=== PATIENT | female | born 1940 | race Caucasian/White ===

== ENCOUNTER → 2016-05-11 | Outpatient (CLI) | payer MEDICARE, OTHER ==
--- NOTE | 2016-05-11 13:13 | WOMENS IMAGING REPORT ---
EXAM DESCRIPTION: BONE DENSITY HIP/SPINE COMPLETED DATE/TIME: 05/11/2016 10:50 am REASON FOR STUDY: M81.0 M81.0 AGE-RELATED OSTEOPOROSIS W/O CURRENT PATHOLOGICAL FRAC Z83.71 FAMILY HISTORY OF COLONIC POLYPS COMPARISON: 2003, 2013 TECHNIQUE: Dual-Energy X-ray Absorptiometry (DEXA) of the AP Spine and Hip. LIMITATIONS: None. FINDINGS: LUMBAR SPINE: The bone mineral density (BMD) measured from L1-L4 in the AP projection correlates with a T-score of -0.6, which is within normal range as defined by the World Health Organization. Please note that the AP bone density assessment includes sclerosis along the vertebral body endplates and posterior eleme nts. This likely explains the increase in bone density compared to previous studies HIP: The bone mineral density (BMD) measured in the left total hip correlates with a T-score of -0.3, whic h is normal as defined by the World Health Organization. COMMENT: The World Health Organization defines low BMD as follows: T-score: Normal: Greater than -1.0 Osteopenia: Between -1.0 and -2.5 Osteoporosis: Less than -2.5 without fractures Established osteoporosis: Less than -2.5 with fractures In general, you may wish to consider: Diagnosis Treatment Follow-up DEXA Normal BMD Prevention 2-3 years Osteopenia Prevention/Therapy 1-2 years Osteoporosis Therapy Yearly TECHNICAL DOCUMENTATION: JOB ID: [id number]- All Rights Reserved
== END ==
LOC: WI 09:57
PROVIDERS: ATTEND Internal Medicine
DX: M81.0 Age-related osteoporosis without current pathological fracture (principal); Z83.71 Family history of colonic polyps
CPT/HCPCS: 77080

== ENCOUNTER 2016-08-09 08:51 | Day surgery (SDC) | payer MEDICARE, OTHER ==
[2016-08-06 12:23] LABS: APPEARANCE,URINE CLEAR; BILIRUBIN,URINE NEGATIVE (NEGATIVE); GLUCOSE, URINE NEGATIVE (NEGATIVE); KETONES,URINE NEGATIVE (NEGATIVE); LEUKOCYTE ESTERASE,URINE TRACE (NEGATIVE); NITRITE,URINE NEGATIVE (NEGATIVE); PROTEIN,URINE NEGATIVE (NEGATIVE); URINE SPECIFIC GRAVITY 1.012; UROBILINOGEN,URINE NEGATIVE mg/dL (<2.0)
[2016-08-06 12:48] LABS: ABSOLUTE BASOPHILS # (AUTO) 0.1 10^3/uL (0.0-0.2); ABSOLUTE EOSINOPHILS # (AUTO) 0.3 10^3/uL (0.0-0.6); ABSOLUTE LYMPHOCYTES (AUTO) 1.6 10^3/uL (0.5-4.7); ABSOLUTE MONOCYTES (AUTO) 0.3 10^3/uL (0.1-1.4); ABSOLUTE NEUT (AUTO) 1.4 10^3/uL (1.7-8.2); BASOPHILS % (AUTO) 1.9 % (0-2); EOSINOPHILS % (AUTO) 8.2 % (0-6); HEMATOCRIT 35.9 % (36.0-47.0); HEMOGLOBIN 12.4 g/dL (12.0-15.5); HGB HCT DIFFERENCE 1.3; LYMPHOCYTES % (AUTO) 43.1 % (13-45); MEAN CORPUSCULAR HGB CONC 34.6 g/dL (32.0-36.0); MEAN CORPUSCULAR VOLUME 90 fl (80-97); MONOCYTES % (AUTO) 8.2 % (3-13); RED BLOOD COUNT 4.01 10^6/uL (3.72-5.28); RED CELL DISTRIBUTION WIDTH 13.8 % (11.5-14.0); SEGMENTED NEUTROPHILS % (AUTO) 38.6 % (42-78); WHITE BLOOD COUNT 3.6 10^3/uL (4.0-10.5)
[2016-08-06 13:06] LABS: ANION GAP 16 (5-19); BLOOD UREA NITROGEN 21 mg/dL (7-20); CALCIUM 9.4 mg/dL (8.4-10.2); CARBON DIOXIDE 25 mmol/L (22-30); CHLORIDE 104 mmol/L (98-107); CREATININE RESULT 0.55 mg/dL (0.52-1.25); GLUCOSE 87 mg/dL (75-110); POTASSIUM 4.3 mmol/L (3.6-5.0)
--- NOTE | 2016-08-06 21:53 | EKG REPORT ---
SEVERITY:- NORMAL ECG - SINUS RHYTHM : Confirmed by: January Joel MD 06-Aug-2016 21:51:23
[~2016-08-09 08:51] MED LIST: BUPIVACAINE HCL 0.5 % INJ/PF 30 ML SDV ONE; CEFAZOLIN 2 GM/D5W RTU 2 GM/50 ML RTUPB IV PRN; CEFAZOLIN INJ 1 GM VIAL IV PRN; LACTATED RINGERS 1000 ML IV PRN; LIDOCAINE 0.5% INJ-PF (5 MG/ML) 50 ML SDV SUBCUT PRN; LIDOCAINE 1%/EPINEPHRINE INJ 20 ML VIAL ONE
[2016-08-09] MEDS ORDERED: ONDANSETRON HCL INJ/PF 4 MG/2 ML SDV ONE ×2 (11:22→12:33)
[2016-08-09] MEDS ORDERED: FENTANYL CITRATE INJ/PF 100 MCG/2 ML AMPUL ONE ×3 (11:22→13:50)
[2016-08-09] MEDS ORDERED: PROPOFOL INJ 200 MG/20 ML VIAL IV ONE ×2 (11:22→12:33)
[2016-08-09] MEDS ORDERED: MIDAZOLAM 2 MG/2 ML INJ ONE ×2 (11:22→12:33)
[2016-08-09] MEDS ORDERED: ACETAMINOPHEN 0 ML IV ONE (11:23)
[2016-08-09] MEDS ORDERED: IBUPROFEN INJ 800 MG/8 ML VIAL IV ONE (11:23)
[2016-08-09] MEDS ORDERED: DEXAMETHASONE SOD PHOSPHATE INJ 4 MG/1 ML VIAL ONE (12:33)
[2016-08-09] MEDS ORDERED: MORPHINE SULFATE 10 MG/ML INJ ONE (12:33)
[2016-08-09] MEDS ORDERED: MEPERIDINE HCL/PF INJ 25 MG/1 ML DISP.SYRIN IV PRN (12:52)
[2016-08-09] MEDS ORDERED: FENTANYL CITRATE INJ/PF 100 MCG/2 ML AMPUL IV PRN ×3 (12:52)
[2016-08-09] MEDS ORDERED: DIPHENHYDRAMINE HCL 50 MG/ML VIAL IV PRN (12:52)
[2016-08-09] MEDS ORDERED: PROMETHAZINE HCL INJ 25 MG/1 ML VIAL IV PRN ×2 (12:52)
[2016-08-09] MEDS ORDERED: MORPHINE SULFATE 10 MG/ML INJ IV PRN (12:52)
--- NOTE | 2016-08-09 13:26 | Operative Report ---
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 Right lateral meniscal tear. Right lateral compartment chondrocalcinosis. Intact anterior cruciate ligament. Grade 2-3 chondral malacia the patellofemoral compartment. 2 cm chondral lesion of the medial femoral condyle. Medial meniscal tear OPERATION: Arthroscopic partial right lateral meniscectomy, partial right medial meniscectomy, abrasion chondroplasty, medial femoral compartment SURGEON: DONA HANKS ANESTHESIA: LMAC PROCEDURE: Supine the operating table the right lower extremity is prepped and draped in a sterile fashion. The knee is insufflated with accommodation Marcaine, Xylocaine , and epinephrine. Subsequent medial lateral infrapatellar portals are created construction are scrubbed and debridements mentation. Joint is examined Mrs. Sachin kothari. Findings as above. Using combination of basket Salas, mechanical shaver, Dr. frequency ablation probe a partial lateral meniscectomy was performed from proximal 6:00 to 12:00 on the face of the dial. Subsequently a partial medial meniscectomy was performed from approximately 12: 00 to 3:00 on the face the dial. The chondral lesion on medial femoral condyle which is about the tibial spines is debrided of all flaking chondral material. The base of it is then pockmarked using a spinal needle. At this point the joint was again examined Mrs. Sachin kothari with no new findings. His mentation is removed. The portals closures interrupted nylon. A sterile compressive dressing was applied and the patient's returned to PACU in satisfactory condition.
[2016-08-09] MEDS ORDERED: HYDROCODONE/ACETAMINOPHEN 5-325 MG TABLET PO PRN (14:32)
[2016-08-09] MEDS ORDERED: ONDANSETRON 4 MG TAB.RAPDIS PO PRN (14:32)
[2016-08-09 15:40] VITALS: BP 142/80
== END 2016-08-09 15:20 | disposition home or self-care (01) ==
LOC: OROUT 08:51
PROVIDERS: ATTEND Orthopaedic Surgery
PROC: 0SBC4ZZ Excision of Right Knee Joint, Percutaneous Endoscopic Approach (ICD-10-PCS; 2016-08-09)
PROC: 0SBC4ZZ Excision of Right Knee Joint, Percutaneous Endoscopic Approach (ICD-10-PCS; principal; 2016-08-09 11:15)
DX: M23.200 Derangement of unspecified lateral meniscus due to old tear or injury, right knee (principal); M23.203 Derangement of unspecified medial meniscus due to old tear or injury, right knee; M22.41 Chondromalacia patellae, right knee; M11.261 Other chondrocalcinosis, right knee; M19.90 Unspecified osteoarthritis, unspecified site; Z85.038 Personal history of other malignant neoplasm of large intestine; Z87.891 Personal history of nicotine dependence; Z79.899 Other long term (current) drug therapy
CPT/HCPCS: 93005; 36415; 85025; 80048; 81001; 71020; 93010; 29880; J2250; J1100; J3010; J3490; J2405; J2704; J0690; A9270; 1400; J0131; J1741; J2270

== ENCOUNTER 2016-11-01 15:59 | Emergency (ER) | payer MEDICARE, OTHER ==
[2016-11-01] MEDS ORDERED: ONDANSETRON 4 MG TAB.RAPDIS PO ONE (17:07)
--- NOTE | 2016-11-01 17:07 | ER Document Report ---
ED Medical Screen (RME) - General Chief Complaint: Nausea/Vomiting Stated Complaint: NAUSEA Time Seen by Provider: 11/01/16 17:02 Notes: patient is a 76 year old female who presents with emesis with sudden onset this am which calmed down this afternoon. she had relief for a bout 3 hours. now presents with nausea, vomiting, and abdominal discomfort. she states she has had about 15 episodes. states it is orange in color/clear. no blood, hematochezaia PMH: barretts esophagitis, colon ca, migraines, epigastric tenderness, normal bowel sounds TRAVEL OUTSIDE OF THE [place] IN LAST 30 DAYS: No - Related Data Allergies/Adverse Reactions: nitrofurantoin [From Macrobid] Allergy (Intermediate, Verified 11/01/16 16:06) Nausea nitrofurantoin macrocrystalline [From Macrobid] Allergy (Intermediate, Verified 11/01/16 16:06) Nausea Past Medical History - Past Medical History Cardiac Medical History: Denies: Hx Coronary Artery Disease, Hx Heart Attack, Hx Hypertension Pulmonary Medical History: Denies: Hx Asthma, Hx Bronchitis, Hx COPD, Hx Pneumonia Neurological Medical History: Denies: Hx Cerebrovascular Accident, Hx Seizures Renal/ Medical History: Denies: Hx Peritoneal Dialysis GI Medical History: Denies: Hx Hepatitis, Hx Hiatal Hernia, Hx Ulcer Musculoskeltal Medical History: Reports Hx Arthritis Infectious Medical History: Denies: Hx Hepatitis Past Surgical History: Reports: Hx Hysterectomy. Denies: Hx Mastectomy, Hx Open Heart Surgery, Hx Pacemaker - Immunizations Hx Diphtheria, Pertussis, Tetanus Vaccination: Yes Physical Exam - Vital signs Vitals: Temp Pulse Resp BP Pulse Ox 98.0 F 108 H 24 H 135/73 H 97 11/01/16 16:06 11/01/16 16:06 11/01/16 16:06 11/01/16 16:06 11/01/16 16:06 Course - Vital Signs Vital signs: Temp Pulse Resp BP Pulse Ox 98.0 F 108 H 24 H 135/73 H 97 11/01/16 16:06 11/01/16 16:06 11/01/16 16:06 11/01/16 16:06 11/01/16 16:06
--- NOTE | 2016-11-01 18:37 | ER Document Report ---
ED GI/ - General Mode of Arrival: Ambulatory Information source: Patient TRAVEL OUTSIDE OF THE [place] IN LAST 30 DAYS: No - HPI Patient complains to provider of: Abdominal pain, Vomiting Onset: Other - Refer to HPI notes <LOTUS BENSON - Last Filed: 11/02/16 03:57> <MAK MORALES - Last Filed: 11/02/16 04:23> - General Chief Complaint: Nausea/Vomiting Stated Complaint: NAUSEA Time Seen by Provider: 11/01/16 17:02 Notes: Patient is a 76 year old female presenting to the emergency department for nausea and vomiting. Patient states these symptoms were onset at 4:00 or 5:00 this morning. Patient states she feels like she has to have a bowel movement and is unable to. Patient had vomiting all day until around 14:00 when she was able to eat about 2 bites of chicken noodle soup. Patient then had vomiting the rest of the evening. Patient states she last vomited in the waiting room. Patient was given zofran which helped her vomiting because she is now just dry heaving. Patient denies any diarrhea. Patient complains of some epigastric pain. Patient takes because she recently lost her . Patient had bowel obstruction for pressure. Patient also has hypercholesterolemia, depression, hysterectomy, colon cancer that has been in remission for 8 years has a history of UTIs. Patient's primary care physician is Dr. Thomson. (LOTUS BENSON) - Related Data Allergies/Adverse Reactions: nitrofurantoin [From Macrobid] Allergy (Intermediate, Verified 11/01/16 16:06) Nausea nitrofurantoin macrocrystalline [From Macrobid] Allergy (Intermediate, Verified 11/01/16 16:06) Nausea Past Medical History - General Information source: Patient - Social History Smoking Status: Never Smoker Cigarette use (# per day): No Chew tobacco use (# tins/day): No Smoking Education Provided: No Frequency of alcohol use: None Drug Abuse: None Family History: None Patient has suicidal ideation: No Patient has homicidal ideation: No Musculoskeltal Medical History: Reports Hx Arthritis Past Surgical History: Reports: Hx Hysterectomy - Immunizations Hx Diphtheria, Pertussis, Tetanus Vaccination: Yes Hx Pneumococcal Vaccination: 04/18/12 <LOTUS BENSON - Last Filed: 11/02/16 03:57> Review of Systems - Review of Systems Constitutional: No symptoms reported EENT: No symptoms reported Cardiovascular: No symptoms reported Respiratory: No symptoms reported Gastrointestinal: See HPI, Abdominal pain, Nausea, Vomiting Genitourinary: No symptoms reported Female Genitourinary: No symptoms reported Musculoskeletal: No symptoms reported Skin: No symptoms reported Hematologic/Lymphatic: No symptoms reported Neurological/Psychological: No symptoms reported -: Yes All other systems reviewed and negative <LOTUS BENSON - Last Filed: 11/02/16 03:57> Physical Exam <LOTUS BENSON - Last Filed: 11/02/16 03:57> <MAK MORALES - Last Filed: 11/02/16 04:23> - Vital signs Vitals: Temp Pulse Resp BP Pulse Ox 98.0 F 108 H 24 H 135/73 H 97 11/01/16 16:06 11/01/16 16:06 11/01/16 16:06 11/01/16 16:06 11/01/16 16:06 - Notes Notes: GENERAL: Alert, interacts well. No acute distress. HEAD: Normocephalic, atraumatic. EYES: Appear normal. Pupils equal, round, and reactive to light. ENT: Moist mucus membranes, tongue midline. NECK: Full range of motion. Supple. Trachea midline. LUNGS: Clear to auscultation bilaterally, no wheezes, rales, or rhonchi. No respiratory distress. HEART: Regular rate and rhythm. No murmurs, gallops, or rubs. ABDOMEN: Soft, non-tender. Non-distended. Slightly decreased bowel sounds. EXTREMITIES: Moves all 4 extremities spontaneously. Normal strength. No edema. NEUROLOGICAL: Alert and oriented x3. Normal speech. No focal neurological deficits. GSC 15. PSYCH: Normal affect, normal mood. SKIN: Warm, dry, normal turgor. No rashes or lesions noted. (LOTUS BENSON) Course - Laboratory Result Diagrams: 11/01/16 18:30 11/01/16 18:30 <LOTUS BENSON - Last Filed: 11/02/16 03:57> - Laboratory Result Diagrams: 11/01/16 18:30 11/01/16 18:30 <MAK MORALES - Last Filed: 11/02/16 04:23> - Vital Signs Vital signs: Temp Pulse Resp BP Pulse Ox 97.5 F 90 16 131/78 H 98 11/01/16 21:53 11/01/16 21:53 11/01/16 21:53 11/01/16 21:53 11/01/16 21:53 - Laboratory Laboratory results interpreted by me: 11/01/16 11/01/16 11/01/16 18:30 18:30 19:20 Seg Neutrophils % 80.8 H Lymphocytes % 11.8 L BUN 29 H Glucose 111 H Urine Protein 30 H Urine Ketones 20 H Ur Leukocyte Esterase SMALL H Urine Ascorbic Acid 20 H Discharge <LOTUS BENSON - Last Filed: 11/02/16 03:57> <ANDREWMAK - Last Filed: 11/02/16 04:23> - Discharge Clinical Impression: Acute UTI, Nausea and vomiting Condition: Stable Disposition: HOME, SELF-CARE Additional Instructions: Urinary Tract Infection Your evaluation indicates that you have a urinary tract infection. This is due to germs growing in the bladder. This is a common problem. This infection usually responds quickly to antibiotics. Your antibiotic should be taken exactly as prescribed. Drink plenty of fluids -- three to four quarts a day. Occasionally, a bladder anesthetic will be prescribed to help stop the feeling of urgency until the antibiotic has a chance to clear the infection. This may cause your urine to be dark orange. Certain urine infections require a culture. If the doctor obtained a culture, the results will be back in two days. You should call to see if a change in treatment is needed. A repeat urinalysis after you finish treatment is often recommended. The physician will let you know if further testing is required. Call the doctor if you develop fever, chills, flank pain, inability to urinate, or blood in the urine. Vomiting Vomiting can be part of many illnesses. Most cases of vomiting are due to gastroenteritis, usually a viral infection in the intestinal tract. There is no specific treatment. The disease will end by itself. For now, the main danger to your child is dehydration. During the first few hours of the illness, give clear liquids, such as Pedialyte. Try to give small quantities frequently, such as a teaspoon of liquid every minute or about an ounce of fluids every five to ten minutes. Medications may be prescribed by the physician for special cases. After an hour or two of fluids without vomiting, add rice cereal, toast, applesauce, or bananas and other more solid foods to the clear liquids. Call the physician or go to the hospital if vomiting increases or blood appears in the bowel movement or vomitus; if your child fails to improve, or if signs of dehydration occur (no wet diapers for eight to twelve hours, tongue and mouth become dry, not acting as alert as usual). Prescriptions: Cephalexin Monohydrate [Keflex 500 mg Capsule] 500 mg PO QID #20 capsule Referrals: VICTORINO THOMSON MD [Primary Care Provider] - (Call for an appointment to be seen in follow-up in 2-3 days return for increasing worsening or new symptoms) Scribe Attestation: 11/01/16 21:04 I personally performed the services described in the documentation reviewed the documentation recorded by my scribe in my presence and it accurately and completely records my words and actions (MAK MORALES) Scribe Documentation - Scribe Written by Hailey:: Hailey Meade 11/02/16 4:02 acting as scribe for :: Andrew <LOTUS BENSON - Last Filed: 11/02/16 03:57>
[2016-11-01 18:50] LABS: ABSOLUTE EOSINOPHILS # (AUTO) 0.1 10^3/uL (0.0-0.6); ABSOLUTE MONOCYTES (AUTO) 0.5 10^3/uL (0.1-1.4); ABSOLUTE NEUT (AUTO) 6.7 10^3/uL (1.7-8.2); BASOPHILS % (AUTO) 0.6 % (0-2); EOSINOPHILS % (AUTO) 0.9 % (0-6); HEMOGLOBIN 13.2 g/dL (12.0-15.5); HGB HCT DIFFERENCE -0.4; LYMPHOCYTES % (AUTO) 11.8 % (13-45); MEAN CORPUSCULAR HEMOGLOBIN 30.1 pg (27.0-33.4); MEAN CORPUSCULAR VOLUME 91 fl (80-97); MONOCYTES % (AUTO) 5.9 % (3-13); RED BLOOD COUNT 4.39 10^6/uL (3.72-5.28); RED CELL DISTRIBUTION WIDTH 13.3 % (11.5-14.0); SEGMENTED NEUTROPHILS % (AUTO) 80.8 % (42-78); WHITE BLOOD COUNT 8.3 10^3/uL (4.0-10.5)
[2016-11-01] MEDS ORDERED: NORMAL SALINE 500 ML IV ONE (19:02)
[2016-11-01 19:09] LABS: ALANINE AMINOTRANSFERASE 30 U/L (9-52); ALBUMIN 4.8 g/dL (3.5-5.0); ALKALINE PHOSPHATASE 76 U/L (38-126); ANION GAP 13 (5-19); ASPARTATE AMINO TRANSFERASE 26 U/L (14-36); BILIRUBIN,DIRECT 0.3 mg/dL (0.0-0.4); BLOOD UREA NITROGEN 29 mg/dL (7-20); CALCIUM 9.9 mg/dL (8.4-10.2); CARBON DIOXIDE 27 mmol/L (22-30); CHLORIDE 103 mmol/L (98-107); CREATININE RESULT 0.61 mg/dL (0.52-1.25); GLUCOSE 111 mg/dL (75-110); LIPASE 38.8 U/L (23-300); POTASSIUM 4.1 mmol/L (3.6-5.0); SODIUM 143.4 mmol/L (137-145); TOTAL PROTEIN 7.9 g/dL (6.3-8.2)
[2016-11-01 19:38] LABS: APPEARANCE,URINE SLIGHTLY-CLOUDY; BILIRUBIN,URINE NEGATIVE (NEGATIVE); GLUCOSE, URINE NEGATIVE (NEGATIVE); KETONES,URINE 20 mg/dL (NEGATIVE); LEUKOCYTE ESTERASE,URINE SMALL (NEGATIVE); NITRITE,URINE NEGATIVE (NEGATIVE); PROTEIN,URINE 30 mg/dL (NEGATIVE); URINE SPECIFIC GRAVITY 1.016; UROBILINOGEN,URINE NEGATIVE mg/dL (<2.0)
--- NOTE | 2016-11-01 20:33 | RADIOLOGY REPORT (SQ) ---
EXAM DESCRIPTION: ACUTE ABDOMEN SERIES COMPLETED DATE/TIME: 11/01/2016 7:58 pm REASON FOR STUDY: vomiting history bowel obstruction COMPARISON: 08/06/2016 NUMBER OF VIEWS: Three views. TECHNIQUE: Frontal chest, supine abdomen and upright/decubitus abdomen radiographic images acquired. LIMITATIONS: None. FINDINGS: CHEST: Stable chest. Chronic changes at the right base. FREE AIR: None. No abnormal gas collections. BOWEL GAS PATTERN: Constipation. No obstructive changes. CALCIFICATIONS: No suspicious calcifications. HARDWARE: None in the abdomen. SOFT TISSUES: No gross mass or suggestion of organomegaly. BONES: Diffuse degenerative changes. OTHER: No other significant finding. IMPRESSION: Constipation. No evidence for obstruction. TECHNICAL DOCUMENTATION: JOB ID: [id number] [employer]- All Rights Reserved
[2016-11-01] MEDS ORDERED: CEPHALEXIN 500 MG CAPSULE PO ONE (21:01)
[2016-11-01] MEDS ORDERED: ONDANSETRON ODT 4 MG TAB (6 TAB/DSPK) PO PRN (21:04)
[2016-11-01 21:55] VITALS: BP 131/78
== END 2016-11-01 21:53 | disposition home or self-care (01) ==
LOC: ER 15:59
DX: N39.0 Urinary tract infection, site not specified (principal); R11.2 Nausea with vomiting, unspecified; R10.9 Unspecified abdominal pain; E78.00 Pure hypercholesterolemia, unspecified; Z90.710 Acquired absence of both cervix and uterus; Z85.038 Personal history of other malignant neoplasm of large intestine; Z87.440 Personal history of urinary (tract) infections
CPT/HCPCS: 99283; 96360; 36415; 87086; 83690; 85025; 80053; 81001; 84484; 74022; A9270 ×3; J7040; S0119

== ENCOUNTER 2016-11-16 11:34 | Day surgery (SDC) | payer MEDICARE, OTHER ==
[2016-11-16] MEDS ORDERED: NALOXONE HCL INJ/PF 0.4 MG/1 ML SDV ONE (11:52)
[2016-11-16] MEDS ORDERED: ONDANSETRON HCL INJ/PF 4 MG/2 ML SDV ONE (11:52)
[2016-11-16] MEDS ORDERED: DIPHENHYDRAMINE HCL 50 MG/ML VIAL ONE (11:52)
[2016-11-16] MEDS ORDERED: MIDAZOLAM 2 MG/2 ML INJ ONE (11:54)
[2016-11-16] MEDS ORDERED: FLUMAZENIL INJ 0.5 MG/5 ML VIAL IV ONE (11:54)
[2016-11-16] MEDS ORDERED: FENTANYL CITRATE INJ/PF 100 MCG/2 ML AMPUL ONE (11:54)
[2016-11-16] MEDS ORDERED: EPINEPHRINE INJ 1 MG/10 ML DISP.SYRIN ONE (11:55)
[2016-11-16] MEDS ORDERED: GLUCAGON,HUMAN RECOMB 1 MG INJ ONE (11:55)
[2016-11-16] MEDS: MIDAZOLAM 2 MG/2 ML INJ ONE ×5 (12:18→12:40)
--- NOTE | 2016-11-16 12:55 | Operative Report ---
Operative Report DATE OF SURGERY: 11/16/16 Operative Report: The risks, benefits and alternatives of the procedure including risks of bleeding, perforation requiring surgery are explained to the patient detail and informed consent was obtained. Patient was taken back to the endoscopy suite and placed in the left, lateral decubital position. Timeout was called. Conscious sedation medication is provided. A rectal examination was done which did not reveal any masses, tears or fissures. An Olympus video scope was inserted into the patient's rectum. It was then carefully advanced all the way to cecum. The cecum was identified by the usual anatomical landmarks of the ileocecal valve as well as the appendiceal office. Photodocumentation is obtained. Prep is good. Scope was then sequentially pulled back via the rest segments of the colon including the ascending colon, hepatic flexure, transverse colon, splenic flexure, descending colon finding to the rectosigmoid portions of the colon. Retroflexion maneuver was performed. The risks benefits and alternatives of the procedure explained to the patient in detail and informed consent is obtained.A GIF Olympus video scope was inserted into the patient's mouth and hypopharynx ,the esophagus is identified intubated and insufflated, the scope was then advanced through the esophagus stomach and duodenum, retroflexion maneuver is done, the esophagus stomach and first and second portions of the duodenum examined PREOPERATIVE DIAGNOSIS: Colorectal cancer screening, personal history of resection in the past. Gastroesophageal reflux disease with known history of Chapa's esophagus. POSTOPERATIVE DIAGNOSIS: Chapa's esophagus status post ablation. Small area of inflammation right side of the colon status post biopsy. Internal hemorrhoids OPERATION: Colonoscopy with biopsy followed by. EGD with ablation SURGEON: MARIANELA LARSON ANESTHESIA: Moderate Sedation - 6 mg of Versed, 50 mcg of fentanyl. Conscious sedation monitoring time 30 minutes. TISSUE REMOVED OR ALTERED: As noted above. COMPLICATIONS: None. ESTIMATED BLOOD LOSS: None. INTRAOPERATIVE FINDINGS: As noted above. PROCEDURE: Patient tolerated procedure well. No immediate postprocedure complications are noted. Patient discharged in good condition. Discharge date 11/16/2016. Discharge diet: Regular. Discharge activity: Regular. 2-3 week follow-up to discuss findings. 5 year surveillance colonoscopy. Six-month surveillance upper endoscopy for repeat ablation if needed. We will wait on biopsies Patient is instructed to call the office or proceed to the emergency room should there be any further problems or questions.
[2016-11-16 14:17] VITALS: BP 116/55
== END 2016-11-16 14:00 | disposition home or self-care (01) ==
LOC: END 11:34
PROVIDERS: ATTEND Internal Medicine Gastroenterology
PROC: 0DBF8ZX Excision of Right Large Intestine, Via Natural or Artificial Opening Endoscopic, Diagnostic (ICD-10-PCS; principal; 2016-11-16 12:00)
PROC: 0D558ZZ Destruction of Esophagus, Via Natural or Artificial Opening Endoscopic (ICD-10-PCS; 2016-11-16 12:00)
DX: Z12.11 Encounter for screening for malignant neoplasm of colon (principal); K52.9 Noninfective gastroenteritis and colitis, unspecified; Z85.038 Personal history of other malignant neoplasm of large intestine; Z90.49 Acquired absence of other specified parts of digestive tract; K64.8 Other hemorrhoids; K22.719 Barrett's esophagus with dysplasia, unspecified; K21.9 Gastro-esophageal reflux disease without esophagitis; E78.00 Pure hypercholesterolemia, unspecified; M19.90 Unspecified osteoarthritis, unspecified site; Z79.899 Other long term (current) drug therapy; Z79.891 Long term (current) use of opiate analgesic
CPT/HCPCS: 43270; 45380; 88305 ×2; J2250; J3010; J0171; J1200; J1610; J2310; J2405; J3490

== ENCOUNTER → 2017-01-18 | Outpatient (CLI) | payer MEDICARE, OTHER ==
--- NOTE | 2017-01-18 15:45 | RADIOLOGY REPORT (SQ) ---
EXAM DESCRIPTION: CHEST PA/LATERAL COMPLETED DATE/TIME: 01/18/2017 3:34 pm REASON FOR STUDY: PRE-OP COMPARISON: 08/06/2016 EXAM PARAMETERS: NUMBER OF VIEWS: two views TECHNIQUE: Digital Frontal and Lateral radiographic views of the chest acquired. RADIATION DOSE: NA LIMITATIONS: none FINDINGS: LUNGS AND PLEURA: There appears to be subsegmental atelectasis in the right base. There i s no change in the appearance of the lungs compared to the earlier study. There is no pleural effusi on. There is no acute infiltrate. There is no mass. MEDIASTINUM AND HILAR STRUCTURES: No masses or contour abnormalities. HEART AND VASCULAR STRUCTURES: Heart normal size. No evidence for failure. BONES: No acute findings. HARDWARE: None in the chest. OTHER: No other significant finding. IMPRESSION: Subsegmental atelectasis with no acute cardiopulmonary disease. TECHNICAL DOCUMENTATION: JOB ID: [id number] [employer]- All Rights Reserved
[2017-01-18 16:32] LABS: ABSOLUTE BASOPHILS # (AUTO) 0.1 10^3/uL (0.0-0.2); ABSOLUTE EOSINOPHILS # (AUTO) 0.3 10^3/uL (0.0-0.6); ABSOLUTE LYMPHOCYTES (AUTO) 1.3 10^3/uL (0.5-4.7); ABSOLUTE MONOCYTES (AUTO) 0.4 10^3/uL (0.1-1.4); ABSOLUTE NEUT (AUTO) 1.9 10^3/uL (1.7-8.2); BASOPHILS % (AUTO) 1.5 % (0-2); EOSINOPHILS % (AUTO) 7.2 % (0-6); HEMATOCRIT 35.2 % (36.0-47.0); HEMOGLOBIN 12.2 g/dL (12.0-15.5); HGB HCT DIFFERENCE 1.4; LYMPHOCYTES % (AUTO) 33.1 % (13-45); MEAN CORPUSCULAR HEMOGLOBIN 30.9 pg (27.0-33.4); MEAN CORPUSCULAR HGB CONC 34.6 g/dL (32.0-36.0); MEAN CORPUSCULAR VOLUME 89 fl (80-97); MONOCYTES % (AUTO) 9.4 % (3-13); RED BLOOD COUNT 3.95 10^6/uL (3.72-5.28); RED CELL DISTRIBUTION WIDTH 13.5 % (11.5-14.0); SEGMENTED NEUTROPHILS % (AUTO) 48.8 % (42-78)
[2017-01-18 16:47] LABS: APPEARANCE,URINE CLEAR; BILIRUBIN,URINE NEGATIVE (NEGATIVE); GLUCOSE, URINE NEGATIVE (NEGATIVE); KETONES,URINE NEGATIVE (NEGATIVE); LEUKOCYTE ESTERASE,URINE TRACE (NEGATIVE); NITRITE,URINE NEGATIVE (NEGATIVE); PROTEIN,URINE 30 mg/dL (NEGATIVE); URINE SPECIFIC GRAVITY 1.013; UROBILINOGEN,URINE NEGATIVE mg/dL (<2.0)
[2017-01-18 16:57] LABS: ANION GAP 10 (5-19); BLOOD UREA NITROGEN 30 mg/dL (7-20); CALCIUM 9.8 mg/dL (8.4-10.2); CARBON DIOXIDE 28 mmol/L (22-30); CHLORIDE 107 mmol/L (98-107); CREATININE RESULT 0.71 mg/dL (0.52-1.25); GLUCOSE 113 mg/dL (75-110); POTASSIUM 4.1 mmol/L (3.6-5.0)
--- NOTE | 2017-01-18 18:18 | EKG REPORT ---
SEVERITY:- NORMAL ECG - SINUS RHYTHM : Confirmed by: January Joel MD 18-Jan-2017 18:17:42
== END ==
LOC: OD 14:33
PROVIDERS: ATTEND Orthopaedic Surgery
DX: Z01.810 Encounter for preprocedural cardiovascular examination (principal); Z01.812 Encounter for preprocedural laboratory examination; Z01.818 Encounter for other preprocedural examination; J98.11 Atelectasis
CPT/HCPCS: 36415; 71020; 80048; 81001; 85025; 93005; 93010

== ENCOUNTER 2017-02-02 05:56 | Inpatient (IN) | payer MEDICARE, OTHER ==
[~2017-02-02 05:56] MED LIST changes: -BUPIVACAINE HCL 0.5 % INJ/PF 30 ML SDV ONE; +BUPIVACAINE INJ/PF LIPOSOME/PF 266 MG/20 ML SDV INJ PRN; -CEFAZOLIN 2 GM/D5W RTU 2 GM/50 ML RTUPB IV PRN; +IBUPROFEN 800 MG in NORMAL SALINE 250 ML IV PRN; +LANSOPRAZOLE 15 MG TAB.RAP.DR PO PRN; -LIDOCAINE 1%/EPINEPHRINE INJ 20 ML VIAL ONE; +OXYCODONE HCL SR 10 MG TABLET PO PRN; +VANCOMYCIN HCL 1,000 MG in DEXTROSE 5%-WATER 250 ML IV PRN
[2017-02-02] MEDS ORDERED: FENTANYL CITRATE INJ/PF 100 MCG/2 ML AMPUL ONE (06:48)
[2017-02-02] MEDS ORDERED: MIDAZOLAM 2 MG/2 ML INJ ONE (06:48)
[2017-02-02] MEDS ORDERED: FENTANYL CITRATE INJ/PF 250 MCG/5 ML AMPULE ONE (06:48)
[2017-02-02] MEDS ORDERED: ONDANSETRON HCL INJ/PF 4 MG/2 ML SDV ONE (06:49)
[2017-02-02] MEDS ORDERED: EPHEDRINE SULFATE INJ 50 MG/1 ML AMPULE ONE (06:49)
[2017-02-02] MEDS ORDERED: PROPOFOL INJ 200 MG/20 ML VIAL IV ONE (06:49)
[2017-02-02] MEDS ORDERED: TRANEXAMIC ACID INJ/PF 1,000 MG/10 ML SDV IV ONE ×3 (06:49→11:00)
[2017-02-02] MEDS ORDERED: THROMBIN (BOVINE) TOPICAL 20000 UNIT VIAL ONE (07:17)
[2017-02-02] MEDS ORDERED: THROMBIN (BOVINE) 5000 UNIT EPITAXIS KIT ONE (07:18)
[2017-02-02] MEDS ORDERED: BUPIVACAINE INJ/PF LIPOSOME/PF 266 MG/20 ML SDV ONE (07:18)
[2017-02-02] MEDS ORDERED: CEFTRIAXONE RTU 2 GM/D5W 50 ML IV SCH (08:00)
[2017-02-02] MEDS ORDERED: CEFTRIAXONE 2 GM/D5W RTU 2 GM/50 ML RTUPB IV ONE (08:00)
[2017-02-02] MEDS ORDERED: FENTANYL CITRATE INJ/PF 100 MCG/2 ML AMPUL IV PRN ×3 (08:38)
[2017-02-02] MEDS ORDERED: PROMETHAZINE HCL INJ 25 MG/1 ML VIAL IV PRN (08:38)
[2017-02-02] MEDS ORDERED: DIPHENHYDRAMINE HCL 50 MG/ML VIAL IV PRN ×2 (08:38→09:08)
[2017-02-02] MEDS ORDERED: ASCORBATE CALCIUM PO PRN (09:07)
[2017-02-02] MEDS ORDERED: BIOFLAVONOID PO PRN (09:07)
[2017-02-02] MEDS ORDERED: POLYETHYLENE GLYCOL 3350 POWDER 17 GM/1 PACKET PO PRN (09:07)
--- NOTE | 2017-02-02 09:07 | Operative Report ---
Operative Report DATE OF SURGERY: 02/02/17 PREOPERATIVE DIAGNOSIS: Right knee arthritis OPERATION: Right knee arthroplasty SURGEON: DONA HANKS ANESTHESIA: Spinal TISSUE REMOVED OR ALTERED: Bone to pathology ESTIMATED BLOOD LOSS: 100 PROCEDURE: Implants used: Femur: Karishma triathlon #4 CR femur Tibia: #3 tibia Tibial liner: 9 mm CS insert Patella: 29 mm oval patella Procedure with the patient supine on the operating table the right the limb is prepped and draped in a sterile fashion. The limb was elevated for exsanguination and the tourniquet inflated to 280 torr. A standard midline median parapatellar approach the knee is taken. Access is gained to the femoral canal through the intercondylar notch. Intramedullary alignment instrumentation used to resect 10 mm of distal femur in 5 of valgus. Sizing guide indicated a size 4 femur. Appropriate cutting jig is then used to fashion anterior posterior and chamfer cuts. A trial reduction femurs performed and this is judged to be adequate. Attention was next turned to the tibia. Using an extra medullary alignment system 9 millimeters was resected off the lateral tibial plateau. This is sized to a size 3 tibia. A trial reduction was now performed with a for femur and a 3 tibia using a 9 millimeters spacer. It is full extension and central patellofemoral tracking. The articular surface the patella was next resected using an oscillating saw. All trial implants were removed. Polymethylmethacrylate is mixed and used to cement the above implants in place. On adequate curing the cement excess cement was removed the tourniquet was deflated hemostasis obtained the wound is then closed in layers using interrupted Vicryl followed by mimi. A sterile compressive dressing was applied and the patient returned to recovery room in satisfactory condition.
[2017-02-02] MEDS ORDERED: MORPHINE SULFATE 10 MG/ML INJ IV PRN ×2 (09:08)
[2017-02-02] MEDS ORDERED: ONDANSETRON 4 MG TAB.RAPDIS PO PRN (09:08)
[2017-02-02] MEDS ORDERED: ZOLPIDEM TARTRATE 5 MG TABLET PO PRN (09:08)
[2017-02-02] MEDS ORDERED: MORPHINE SULFATE 10 MG/ML INJ IM PRN (09:08)
[2017-02-02] MEDS ORDERED: MAG HYDROX/AL HYDROX/SIMETH SUSP 30 ML UDCUP PO PRN (09:08)
[2017-02-02] MEDS ORDERED: RINGERS SOLUTION,LACTATED 1,000 ML IV PRN (09:08)
[2017-02-02] MEDS ORDERED: ONDANSETRON HCL INJ/PF 4 MG/2 ML SDV IV PRN (09:08)
[2017-02-02] MEDS ORDERED: ACETAMINOPHEN 325 MG TABLET PO PRN (09:08)
--- NOTE | 2017-02-02 09:52 | RADIOLOGY REPORT (SQ) ---
EXAM DESCRIPTION: KNEE RIGHT 2 VIEWS COMPLETED DATE/TIME: 02/02/2017 9:34 am REASON FOR STUDY: Post OP -Long Cassette in PACU COMPARISON: None. NUMBER OF VIEWS: Two views left knee. LIMITATIONS: None. FINDINGS: Status post knee arthroplasty with grossly appropriately articulating components. Expecte d postoperative changes including gas, fluid and overlying skin mimi. Roughly 2 cm ossific densit y along the medial knee may be artifact ; ossific fragment/loose body in the medial gutter also possi ble. Nonportable four view knee radiographs may help to further assess. OTHER: No other significant finding. IMPRESSION: 1. Intact knee replacement with expected postoperative changes. 2. Ossific fragment med iallmarcello, see above. TECHNICAL DOCUMENTATION: JOB ID: [id number]
[2017-02-02] MEDS ORDERED: (PENDING PHARMACY ID) (Omega-3/Dha/Epa/Fish Oil [Fish Oil 1,000 Mg Softgel] 1 CAP) PO SCH (10:00)
[2017-02-02] MEDS ORDERED: [UNRECOGNIZED DRUG - OTHER] PO SCH (10:00)
[2017-02-02] MEDS ORDERED: LUTEIN T PO SCH (10:00)
[2017-02-02] MEDS ORDERED: CHOLECALCIFEROL 1000 UNIT PO SCH (10:00)
[2017-02-02] MEDS ORDERED: FOLIC ACID PO SCH (10:00)
[2017-02-02] MEDS ORDERED: MULTIVITAMINS W-IRON TABLET, CHEWABLE PO SCH (10:00)
[2017-02-02] MEDS ORDERED: OXYCODONE HCL SR 10 MG TABLET PO SCH (10:00)
[2017-02-02] MEDS ORDERED: MULTIVIT MIN PO SCH (10:00)
[2017-02-02] MEDS ORDERED: (PENDING PHARMACY ID) (Cyanocobalamin (Vitamin B-12) [Vitamin B12] 2,500 MCG) PO SCH (10:00)
[2017-02-02] MEDS: MORPHINE SULFATE 10 MG/ML INJ IV PRN ×2 (12:06→15:31)
[2017-02-02] MEDS ORDERED: INFLUENZA ADLT QUAD (36MOS+) 2017-18 VAC 0.5 ML SYR IM PRN (12:36)
[2017-02-02] MEDS: IBUPROFEN 800 MG in NORMAL SALINE 250 ML IV SCH ×2 (14:14→21:42)
[2017-02-02] MEDS: OMEGA-3 ACID ETHYL ESTERS 1 GM CAPSULE PO SCH (14:14)
[2017-02-02] MEDS: CYANOCOBALAMIN (VITAMIN B-12) 1,000 MCG TABLET PO SCH (14:14)
[2017-02-02] MEDS: CHOLECALCIFEROL (D3) 1,000 UNIT TABLET PO SCH (14:14)
[2017-02-02] MEDS: OXYCODONE HCL IR 5 MG TABLET PO PRN ×2 (14:16→23:34)
[2017-02-02] MEDS: SENNOSIDES/DOCUSATE 8.6-50 MG 1 EACH TABLET PO SCH (17:53)
[2017-02-02] MEDS ORDERED: VANCOMYCIN HCL 1,000 MG in DEXTROSE 5%-WATER 250 ML IV ONE (21:00)
[2017-02-02] MEDS: RIVAROXABAN 10 MG TABLET PO SCH (21:40)
[2017-02-02] MEDS: ZOLPIDEM TARTRATE 5 MG TABLET PO SCH (21:40)
[2017-02-02] MEDS: OXYCODONE HCL SR 10 MG TABLET PO SCH (21:42)
[2017-02-02] MEDS ORDERED: (PENDING PHARMACY ID) (Zolpidem Tartrate [Ambien 10 Mg Tablet] 10 MG) PO SCH (22:00)
[2017-02-03 04:29] LABS: HEMATOCRIT 24.5 % (36.0-47.0); HEMOGLOBIN 8.7 g/dL (12.0-15.5); HGB HCT DIFFERENCE 1.6; MEAN CORPUSCULAR HEMOGLOBIN 31.4 pg (27.0-33.4); MEAN CORPUSCULAR HGB CONC 35.3 g/dL (32.0-36.0); MEAN CORPUSCULAR VOLUME 89 fl (80-97); RED BLOOD COUNT 2.76 10^6/uL (3.72-5.28); RED CELL DISTRIBUTION WIDTH 13.4 % (11.5-14.0); WHITE BLOOD COUNT 5.4 10^3/uL (4.0-10.5)
[2017-02-03 04:55] LABS: ANION GAP 10 (5-19); BLOOD UREA NITROGEN 15 mg/dL (7-20); CALCIUM 8.7 mg/dL (8.4-10.2); CARBON DIOXIDE 24 mmol/L (22-30); CHLORIDE 107 mmol/L (98-107); CREATININE RESULT 0.61 mg/dL (0.52-1.25); GLUCOSE 137 mg/dL (75-110); POTASSIUM 4.2 mmol/L (3.6-5.0); SODIUM 140.6 mmol/L (137-145)
[2017-02-03] MEDS: IBUPROFEN 800 MG in NORMAL SALINE 250 ML IV SCH ×3 (05:41→21:24)
[2017-02-03] MEDS ORDERED: LANSOPRAZOLE 30 MG TAB.RAP.DR PO SCH (06:00)
[2017-02-03] MEDS ORDERED: OXYCODONE HCL IR 5 MG TABLET PO PRN (06:53)
--- NOTE | 2017-02-03 06:57 | PDOC PROGRESS REPORT ---
Subjective Progress Note for:: 02/03/17 Subjective:: Patient complains of overwhelming pain not relieved with current analgesic regimen Physical Exam Vital Signs: Temp Pulse Resp BP Pulse Ox 37.3 C 80 16 111/65 96 02/02/17 23:28 02/02/17 23:28 02/02/17 23:28 02/02/17 23:28 02/02/17 23:28 Intake & Output 02/01/17 02/02/17 02/03/17 06:59 06:59 06:59 Intake Total 0 3340 Output Total 1300 Balance 0 2040 General appearance: PRESENT: no acute distress Head exam: PRESENT: normocephalic Respiratory exam: PRESENT: unlabored Cardiovascular exam: PRESENT: RRR Pulses: PRESENT: +1 pedal pulses bilateral Vascular exam: PRESENT: normal capillary refill GI/Abdominal exam: PRESENT: soft Rectal exam: PRESENT: deferred Extremities exam: PRESENT: other - Right lower extremity wrapped in a compressive dressing. This is clean dry and intact. Distal neurovascular examination is intact. Neurological exam: PRESENT: alert, awake, oriented to person, oriented to place , oriented to time, oriented to situation. ABSENT: motor sensory deficit Psychiatric exam: PRESENT: appropriate affect, normal mood. ABSENT: homicidal ideation, suicidal ideation Skin exam: PRESENT: dry, intact, warm. ABSENT: cyanosis, rash Results Laboratory Results: 02/03/17 04:11 02/03/17 04:11 02/03/17 02/03/17 04:11 04:11 WBC 5.4 RBC 2.76 L Hgb 8.7 L Hct 24.5 L MCV 89 MCH 31.4 MCHC 35.3 RDW 13.4 Plt Count 153 Sodium 140.6 Potassium 4.2 Chloride 107 Carbon Dioxide 24 Anion Gap 10 BUN 15 Creatinine 0.61 Est GFR ( Amer) > 60 Est GFR (Non-Af Amer) > 60 Glucose 137 H Calcium 8.7 Impressions: Knee X-Ray 02/02/17 09:09 IMPRESSION: 1. Intact knee replacement with expected postoperative changes. 2. Ossific fragment medially, see above. Status: Imported from PACS Assessment & Plan - Diagnosis (1) Arthritis of right knee Is this a current diagnosis for this admission?: Yes Plan: 76-year-old white female postop day 1 from right knee arthroplasty. Narcotic medications would be adjusted to provide better pain control. Patient will continue to work with physical therapy for weightbearing sterile ambulation. Anticipate discharge home with home health [facility] wheeled walker and bedside commode pending functional status - Time Time Spent with patient: 15-24 minutes Anticipated discharge: Home with Homehealth Within: within 48 hours
[2017-02-03] MEDS: PRENATAL VITAMIN W-O CA NO5/FE FUMARATE/FA CAPSULE PO SCH (09:21)
[2017-02-03] MEDS: CHOLECALCIFEROL (D3) 1,000 UNIT TABLET PO SCH (09:21)
[2017-02-03] MEDS: OMEGA-3 ACID ETHYL ESTERS 1 GM CAPSULE PO SCH (09:21)
[2017-02-03] MEDS: CYANOCOBALAMIN (VITAMIN B-12) 1,000 MCG TABLET PO SCH (09:21)
[2017-02-03] MEDS: SENNOSIDES/DOCUSATE 8.6-50 MG 1 EACH TABLET PO SCH ×2 (09:22→17:45)
[2017-02-03] MEDS: OXYCODONE HCL SR 10 MG TABLET PO SCH ×2 (11:08→21:24)
[2017-02-03] MEDS ORDERED: INFLUENZA ADLT QUAD (36MOS+) 2017-18 VAC 0.5 ML SYR IM PRN (13:30)
[2017-02-03] MEDS ORDERED: MAG HYDROX/AL HYDROX/SIMETH SUSP 30 ML UDCUP PO PRN (13:30)
[2017-02-03] MEDS: ZOLPIDEM TARTRATE 5 MG TABLET PO SCH (21:24)
[2017-02-03] MEDS: RIVAROXABAN 10 MG TABLET PO SCH (21:24)
[2017-02-04] MEDS: MORPHINE SULFATE 10 MG/ML INJ IV PRN (04:22)
[2017-02-04 05:47] LABS: HEMATOCRIT 21.4 % (36.0-47.0); HGB HCT DIFFERENCE 1.7; MEAN CORPUSCULAR HEMOGLOBIN 31.8 pg (27.0-33.4); MEAN CORPUSCULAR HGB CONC 36.2 g/dL (32.0-36.0); MEAN CORPUSCULAR VOLUME 88 fl (80-97); RED BLOOD COUNT 2.43 10^6/uL (3.72-5.28); RED CELL DISTRIBUTION WIDTH 13.3 % (11.5-14.0); WHITE BLOOD COUNT 5.3 10^3/uL (4.0-10.5)
[2017-02-04 05:54] LABS: HEMOGLOBIN 7.7 g/dL (12.0-15.5)
[2017-02-04] MEDS ORDERED: NORMAL SALINE 250 ML IV PRN (06:01)
[2017-02-04] MEDS: IBUPROFEN 800 MG in NORMAL SALINE 250 ML IV SCH (06:32)
[2017-02-04] MEDS: LANSOPRAZOLE 30 MG TAB.RAP.DR PO SCH (06:32)
--- NOTE | 2017-02-04 06:58 | PDOC PROGRESS REPORT ---
Subjective Progress Note for:: 02/04/17 Subjective:: Patient somewhat more confused this morning and continued complaint of right knee pain Physical Exam Vital Signs: Temp Pulse Resp BP Pulse Ox 36.5 C 93 20 139/57 H 94 02/03/17 23:35 02/03/17 23:35 02/03/17 23:35 02/03/17 23:35 02/03/17 23:35 Intake & Output 02/02/17 02/03/17 02/04/17 06:59 06:59 06:59 Intake Total 0 3340 1745 Output Total 1300 1000 Balance 0 2040 745 General appearance: PRESENT: no acute distress Head exam: PRESENT: normocephalic Respiratory exam: PRESENT: unlabored Cardiovascular exam: PRESENT: RRR Extremities exam: PRESENT: other - Dressing was changed this morning. Wound is well approximated without erythema. There is scant serosanguineous drainage from the distal aspect. There is modest soft tissue swelling about the knee. There is no significant pedal edema. Distal neurovascular examination is intact. Neurological exam: PRESENT: alert, awake, oriented to person, oriented to place , oriented to time, oriented to situation. ABSENT: motor sensory deficit Psychiatric exam: PRESENT: other - Confused Skin exam: PRESENT: dry, intact, warm. ABSENT: cyanosis, rash Results Laboratory Results: 02/04/17 05:18 02/03/17 04:11 02/04/17 05:18 WBC 5.3 RBC 2.43 L Hgb 7.7 L Hct 21.4 L MCV 88 MCH 31.8 MCHC 36.2 H RDW 13.3 Plt Count 136 L Impressions: Knee X-Ray 02/02/17 09:09 IMPRESSION: 1. Intact knee replacement with expected postoperative changes. 2. Ossific fragment medially, see above. Status: Imported from PACS Assessment & Plan - Diagnosis (1) Arthritis of right knee Is this a current diagnosis for this admission?: Yes Plan: Patient with relatively slow progress with physical therapy. She ambulated 50 feet yesterday. (2) Acute blood loss anemia Is this a current diagnosis for this admission?: Yes Plan: Hematocrit is dropped to 21.4%. She received 2 units of packed red blood cells. - Time Time Spent with patient: 15-24 minutes Anticipated discharge: SNF Within: Other
[2017-02-04] MEDS ORDERED: OXYCODONE HCL IR 5 MG TABLET PO PRN (07:23)
[2017-02-04] MEDS: PRENATAL VITAMIN W-O CA NO5/FE FUMARATE/FA CAPSULE PO SCH (10:27)
[2017-02-04] MEDS: CHOLECALCIFEROL (D3) 1,000 UNIT TABLET PO SCH (10:27)
[2017-02-04] MEDS: OMEGA-3 ACID ETHYL ESTERS 1 GM CAPSULE PO SCH (10:27)
[2017-02-04] MEDS: CYANOCOBALAMIN (VITAMIN B-12) 1,000 MCG TABLET PO SCH (10:27)
[2017-02-04] MEDS: SENNOSIDES/DOCUSATE 8.6-50 MG 1 EACH TABLET PO SCH ×2 (10:28→18:08)
[2017-02-04] MEDS: OXYCODONE HCL IR 5 MG TABLET PO PRN ×2 (16:04→23:35)
[2017-02-04] MEDS: ONDANSETRON HCL INJ/PF 4 MG/2 ML SDV IV PRN (18:47)
[2017-02-04] MEDS: RIVAROXABAN 10 MG TABLET PO SCH (21:14)
[2017-02-04] MEDS: ZOLPIDEM TARTRATE 5 MG TABLET PO SCH (21:14)
[2017-02-04] MEDS: ONDANSETRON 4 MG TAB.RAPDIS PO PRN (22:24)
[2017-02-05] MEDS: ONDANSETRON HCL INJ/PF 4 MG/2 ML SDV IV PRN (03:05)
[2017-02-05 05:24] LABS: HEMATOCRIT 31.3 % (36.0-47.0); HGB HCT DIFFERENCE 2.3; MEAN CORPUSCULAR HEMOGLOBIN 30.5 pg (27.0-33.4); MEAN CORPUSCULAR HGB CONC 35.8 g/dL (32.0-36.0); MEAN CORPUSCULAR VOLUME 85 fl (80-97); RED BLOOD COUNT 3.69 10^6/uL (3.72-5.28); RED CELL DISTRIBUTION WIDTH 16.2 % (11.5-14.0); WHITE BLOOD COUNT 5.8 10^3/uL (4.0-10.5)
[2017-02-05 05:26] LABS: HEMOGLOBIN 11.2 g/dL (12.0-15.5)
[2017-02-05 05:46] LABS: ANION GAP 11 (5-19); BLOOD UREA NITROGEN 14 mg/dL (7-20); CALCIUM 9.2 mg/dL (8.4-10.2); CARBON DIOXIDE 25 mmol/L (22-30); CHLORIDE 107 mmol/L (98-107); CREATININE RESULT 0.54 mg/dL (0.52-1.25); GLUCOSE 142 mg/dL (75-110); POTASSIUM 3.6 mmol/L (3.6-5.0); SODIUM 143.4 mmol/L (137-145)
[2017-02-05] MEDS: LANSOPRAZOLE 30 MG TAB.RAP.DR PO SCH (06:04)
[2017-02-05] MEDS: ONDANSETRON 4 MG TAB.RAPDIS PO PRN (08:14)
--- NOTE | 2017-02-05 08:49 | PDOC PROGRESS REPORT ---
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 Physical Exam Vital Signs: Temp Pulse Resp BP Pulse Ox 37.3 C 97 17 159/68 H 97 02/04/17 23:50 02/04/17 23:50 02/04/17 23:50 02/04/17 23:50 02/04/17 23:50 Intake & Output 02/04/17 02/05/17 02/06/17 06:59 06:59 06:59 Intake Total 1745 1100 Output Total 1000 500 Balance 745 600 Weight 62.1 kg General appearance: PRESENT: mild distress Head exam: PRESENT: normocephalic Respiratory exam: PRESENT: unlabored Cardiovascular exam: PRESENT: RRR Pulses: PRESENT: +1 pedal pulses bilateral Vascular exam: PRESENT: normal capillary refill GI/Abdominal exam: PRESENT: soft Rectal exam: PRESENT: deferred Extremities exam: PRESENT: other - Dressing is clean dry and intact. Neurological exam: PRESENT: alert, awake, oriented to person, oriented to place , other - Patient continues to be confused Psychiatric exam: PRESENT: appropriate affect, normal mood. ABSENT: homicidal ideation, suicidal ideation Skin exam: PRESENT: dry, intact, warm. ABSENT: cyanosis, rash Results Laboratory Results: 02/05/17 05:15 02/05/17 05:15 02/04/17 02/05/17 02/05/17 06:53 05:15 05:15 WBC 5.8 RBC 3.69 L Hgb 11.2 L D Hct 31.3 L MCV 85 MCH 30.5 MCHC 35.8 RDW 16.2 H Plt Count 162 Sodium 143.4 Potassium 3.6 Chloride 107 Carbon Dioxide 25 Anion Gap 11 BUN 14 Creatinine 0.54 Est GFR ( Amer) > 60 Est GFR (Non-Af Amer) > 60 Glucose 142 H Calcium 9.2 Blood Type O POSITIVE Antibody Screen NEGATIVE Impressions: Knee X-Ray 02/02/17 09:09 IMPRESSION: 1. Intact knee replacement with expected postoperative changes. 2. Ossific fragment medially, see above. Assessment & Plan - Diagnosis (1) Arthritis of right knee Is this a current diagnosis for this admission?: Yes Plan: 76-year-old white female status post right knee arthroplasty with postoperative confusion that I think is probably related to narcotic medication. This has been decreased substantially but may take a day or 2 for her mental status to clear. She also complaining of nausea and vomiting may be related to constipation. She has been treated with MiraLAX with out significant benefit. Current plan will be to start Dulcolax suppository. Continued efforts with physical therapy and mobilization. (2) Acute blood loss anemia Is this a current diagnosis for this admission?: Yes Plan: Current hematocrit 31% - Time Time Spent with patient: 15-24 minutes Anticipated discharge: Other Within: Other
[2017-02-05] MEDS ORDERED: BISACODYL 10 MG SUPP.RECT PR ONE (10:00)
--- NOTE | 2017-02-05 10:14 | RADIOLOGY REPORT (SQ) ---
EXAM DESCRIPTION: KUB/ABDOMEN (SINGLE VIEW) COMPLETED DATE/TIME: 02/05/2017 9:46 am REASON FOR STUDY: Nausea, vomiting r/o SBO M17.11 UNILATERAL PRIMARY OSTEOARTHRITIS, RIGHT KNEE COMPARISON: October 2016 NUMBER OF VIEWS: One view. TECHNIQUE: Supine radiographic image of the abdomen acquired. LIMITATIONS: None. FINDINGS: BOWEL GAS PATTERN: There is gaseous distention of multiple bowel loops most consistent wit h an ileus pattern although I cannot exclude an underlying obstruction. Clinical correlation and fol lowup is recommended CALCIFICATIONS: No suspicious calcifications. SOFT TISSUES: No gross mass or suggestion of organomegaly. HARDWARE: Surgical clips are identified in the pelvis. BONES: Degenerative changes are identified in the lumbar spine. OTHER: No other significant finding. IMPRESSION: There is gaseous distention of multiple bowel loops most consistent with an ileus patter n although that I cannot exclude an underlying obstruction. Clinical correlation followup is recomme nded. Other findings as noted above. TECHNICAL DOCUMENTATION: JOB ID: [id number] [employer]- All Rights Reserved
[2017-02-05] MEDS: CYANOCOBALAMIN (VITAMIN B-12) 1,000 MCG TABLET PO SCH (10:40)
[2017-02-05] MEDS: OMEGA-3 ACID ETHYL ESTERS 1 GM CAPSULE PO SCH (10:43)
[2017-02-05] MEDS: PRENATAL VITAMIN W-O CA NO5/FE FUMARATE/FA CAPSULE PO SCH (10:43)
[2017-02-05] MEDS: CHOLECALCIFEROL (D3) 1,000 UNIT TABLET PO SCH (10:43)
[2017-02-05] MEDS: SENNOSIDES/DOCUSATE 8.6-50 MG 1 EACH TABLET PO SCH ×2 (10:43→17:22)
[2017-02-05] MEDS ORDERED: RINGERS SOLUTION,LACTATED 1,000 ML IV PRN (11:09)
--- NOTE | 2017-02-05 18:12 | PDOC CONSULTATION ---
Consultation Consult Date: 02/05/17 Attending physician:: DONA HANKS Consult reason:: Ileus post op knee replacement surgery History of Present Illness Admission Date/PCP: 02/02/17 05:56 VICTORINO THOMSON MD Patient complains of: Nausea and vomiting last night History of Present Illness: ANABEL EDEN is a 76 year old female who underwent knee replacement surgery on 02/02/2017. Her postop course was complicated by status changes. She had nausea and vomiting. X-ray showed possible KUB. During the day today she has improved. Nausea vomiting has resolved. She has felt like eating some solid foods and drinking today. He is not complaining of abdominal pain. She states she has no nausea. Past Medical History Cardiac Medical History: Denies: Atrial Fibrillation, Congestive Heart Failure, Coronary Artery Disease, Myocardial Infarction, Hyperlipidema, Hypertension, Peripheral Vascular Disease, Heart Murmur Pulmonary Medical History: Denies: Asthma, Bronchitis, Chronic Obstructive Pulmonary Disease (COPD), Pneumonia Neurological Medical History: Reports: Seizures - 35-40 years ago, unknown cause Malignancy Medical History: Denies: Leukemia GI Medical History: Reports: Gastroesophageal Reflux Disease - barretts esophagus Denies: Crohn's Disease, Hepatitis, Hiatal Hernia Musculoskeltal Medical History: Reports: Arthritis - neck, lower back, ankles Denies: Fibromyalgia Psychiatric Medical History: Reports: Depression Denies: Bipolar Disorder, Dementia, Post Traumatic Stress Disorder Hematology: Reports: Anemia - transfusion after colon cancer surgery Denies: Hemophilia, Sickle Cell Disease Infectious Medical History: Denies: HIV Past Surgical History Past Surgical History: Reports: Appendectomy, Hysterectomy, Tonsillectomy Denies: Amputation, Section, Cholecystectomy, Colostomy, Coronary Artery Bypass Graft, Gastric Bypass Surgery, Herniorrhaphy, Mastectomy, Pacemaker, Tubal Ligation Social History Smoking Status: Former Smoker Hx Recreational Drug Use: No Hx Prescription Drug Abuse: No - Advance Directive Resuscitation Status: Full Code Family History Family History: None Parental Family History Reviewed: No Children Family History Reviewed: No Sibling(s) Family History Reviewed.: No Medication/Allergy Home Medications: Zolpidem Tartrate [Ambien 10 mg Tablet] 10 mg PO QHS 11/09/11 Polyethylene Glycol 3350 [Miralax Powder 17 Gm/Packet] 17 gm PO DAILY PRN Ascorbate Calcium/Bioflavonoid [Consuelo-C 1,000 mg Tablet] 1 tab PO DAILY PRN 12/30 Cholecalciferol (Vitamin D3) [Vitamin D] 1,000 unit PO DAILY 03/26/14 Folic Acid/Multivit-Min/Lutein [Centrum Silver Chewable Tablet] 1 tab PO DAILY 03/26/14 Cyanocobalamin (Vitamin B-12) [Vitamin B12] 2,500 mcg PO DAILY 01/20/17 Meloxicam [Mobic] 7.5 mg PO DAILY 02/02/17 [place]atten-3/Dha/Epa/Fish Oil [Fish Oil 1,000 mg Softgel] 1 cap PO DAILY 02/02/17 Allergies/Adverse Reactions: nitrofurantoin [From Macrobid] Allergy (Intermediate, Verified 01/20/17 08:22) Nausea nitrofurantoin macrocrystalline [From Macrobid] Allergy (Intermediate, Verified 01/20/17 08:22) Nausea Physical Exam Vital Signs: Temp Pulse Resp BP Pulse Ox 98.1 F 98 20 141/59 H 98 02/05/17 15:44 02/05/17 15:44 02/05/17 15:44 02/05/17 15:44 02/05/17 15:44 Intake & Output 02/04/17 02/05/17 02/06/17 06:59 06:59 06:59 Intake Total 1745 1100 880 Output Total 1000 500 Balance 745 600 880 Weight 62.1 kg General appearance: PRESENT: no acute distress, cooperative Head exam: PRESENT: atraumatic, normocephalic Eye exam: PRESENT: EOMI Mouth exam: PRESENT: moist Respiratory exam: PRESENT: clear to auscultation fermín Cardiovascular exam: PRESENT: RRR Pulses: PRESENT: normal radial pulses GI/Abdominal exam: PRESENT: normal bowel sounds, soft. ABSENT: rebound, tenderness Rectal exam: PRESENT: deferred Neurological exam: PRESENT: alert, awake, oriented to person, oriented to place , oriented to time, oriented to situation Psychiatric exam: PRESENT: normal mood Skin exam: PRESENT: normal color Results Laboratory Results: 02/05/17 05:15 02/05/17 05:15 02/05/17 02/05/17 05:15 05:15 WBC 5.8 RBC 3.69 L Hgb 11.2 L D Hct 31.3 L MCV 85 MCH 30.5 MCHC 35.8 RDW 16.2 H Plt Count 162 Sodium 143.4 Potassium 3.6 Chloride 107 Carbon Dioxide 25 Anion Gap 11 BUN 14 Creatinine 0.54 Est GFR ( Amer) > 60 Est GFR (Non-Af Amer) > 60 Glucose 142 H Calcium 9.2 Impressions: Knee X-Ray 02/02/17 09:09 IMPRESSION: 1. Intact knee replacement with expected postoperative changes. 2. Ossific fragment medially, see above. KUB X-Ray 02/05/17 00:00 IMPRESSION: There is gaseous distention of multiple bowel loops most consistent with an ileus pattern although that I cannot exclude an underlying obstruction. Clinical correlation followup is recommended. Other findings as noted above. Assessment & Plan - Diagnosis (1) Ileus, unspecified Is this a current diagnosis for this admission?: Yes Plan: The patient's nausea and vomiting has subsided. Her abdomen feels better today. She has had 2 bowel movements today. She is eating dinner without difficulty. Status has cleared significantly during the day. I feel that GI issues are resolving and were probably related to
[2017-02-05] MEDS: RIVAROXABAN 10 MG TABLET PO SCH (21:00)
[2017-02-05] MEDS: OXYCODONE HCL IR 5 MG TABLET PO PRN (21:01)
[2017-02-05] MEDS: ZOLPIDEM TARTRATE 5 MG TABLET PO SCH (21:11)
[2017-02-06] MEDS: LANSOPRAZOLE 30 MG TAB.RAP.DR PO SCH (05:36)
[2017-02-06] MEDS: OXYCODONE HCL IR 5 MG TABLET PO PRN (05:36)
--- NOTE | 2017-02-06 08:25 | PDOC PROGRESS REPORT ---
Subjective Progress Note for:: 02/06/17 Subjective:: Patient sitting at bedside. Doing well. States pain has significantly improved. Her mentation has also notably improved. She has had a bowel movement. She is now able to ambulate with a rolling walker without significant assistance. Physical Exam Vital Signs: Temp Pulse Resp BP Pulse Ox 98.6 F 77 15 137/53 H 99 02/06/17 07:31 02/06/17 07:31 02/06/17 07:31 02/06/17 07:31 02/06/17 07:31 Intake & Output 02/05/17 02/06/17 02/07/17 06:59 06:59 06:59 Intake Total 1100 2970 Output Total 500 Balance 600 2970 Weight 62.1 kg 66.1 kg Musculoskeletal exam: PRESENT: other - Right knee: Dressing clean/dry/intact no erythema or drainage. Intact plantar flexion/dorsiflexion. No calf tenderness. Results Laboratory Results: 02/05/17 05:15 02/05/17 05:15 Impressions: Knee X-Ray 02/02/17 09:09 IMPRESSION: 1. Intact knee replacement with expected postoperative changes. 2. Ossific fragment medially, see above. KUB X-Ray 02/05/17 00:00 IMPRESSION: There is gaseous distention of multiple bowel loops most consistent with an ileus pattern although that I cannot exclude an underlying obstruction. Clinical correlation followup is recommended. Other findings as noted above. Assessment & Plan - Diagnosis (1) Arthritis of right knee Is this a current diagnosis for this admission?: Yes Plan: Status post right TKA 1. Patient doing well with physical therapy. Her mentation has improved and has had a bowel movement and is able to tolerate food without any issues. 2. Pain control 3. Xarelto for DVT prophylaxis 4. Discharge planning patient has not progressed appropriately she did have some mentation issues along with constipation but since that has now resolved she has seen significant improvement and feels as though she is able to go home. Patient may be discharged home today with home health to set up.
[2017-02-06] MEDS: SENNOSIDES/DOCUSATE 8.6-50 MG 1 EACH TABLET PO SCH (09:45)
[2017-02-06] MEDS: OMEGA-3 ACID ETHYL ESTERS 1 GM CAPSULE PO SCH (09:45)
[2017-02-06] MEDS: CHOLECALCIFEROL (D3) 1,000 UNIT TABLET PO SCH (09:45)
[2017-02-06] MEDS: CYANOCOBALAMIN (VITAMIN B-12) 1,000 MCG TABLET PO SCH (09:45)
[2017-02-06] MEDS: PRENATAL VITAMIN W-O CA NO5/FE FUMARATE/FA CAPSULE PO SCH (09:46)
[2017-02-06 11:02] VITALS: BP 159/68
--- NOTE | 2017-02-06 11:39 | PDOC PROGRESS REPORT ---
Subjective Progress Note for:: 02/06/17 Subjective:: Patient says she feels much better today. Her bowels are back to normal with normal movement. Regular diet without difficulty or nausea vomiting. Planning to go home today. Physical Exam Vital Signs: Temp Pulse Resp BP Pulse Ox 98.6 F 77 15 159/68 H 99 02/06/17 10:48 02/06/17 10:48 02/06/17 10:48 02/06/17 10:48 02/06/17 10:48 Intake & Output 02/05/17 02/06/17 02/07/17 06:59 06:59 06:59 Intake Total 1100 2970 Output Total 500 Balance 600 2970 Weight 62.1 kg 66.1 kg Additional comments: Exam is unchanged today. Abdomen is benign. Bowel sounds are normal. Results Laboratory Results: 02/05/17 05:15 02/05/17 05:15 Impressions: Knee X-Ray 02/02/17 09:09 IMPRESSION: 1. Intact knee replacement with expected postoperative changes. 2. Ossific fragment medially, see above. KUB X-Ray 02/05/17 00:00 IMPRESSION: There is gaseous distention of multiple bowel loops most consistent with an ileus pattern although that I cannot exclude an underlying obstruction. Clinical correlation followup is recommended. Other findings as noted above. Assessment & Plan - Diagnosis (1) Ileus, unspecified Is this a current diagnosis for this admission?: Yes Plan: Resume normal diet. No further therapy is needed. Ileus is resolved.
--- NOTE | 2017-02-09 07:15 | PDOC DISCHARGE SUMMARY ---
General - Admit/Disc Date/PCP Admission Date/Primary Care Provider: 02/02/17 05:56 VICTORINO THOMSON MD Discharge Date: 02/06/17 - Discharge Diagnosis (1) Arthritis of right knee Is this a current diagnosis for this admission?: Yes (2) Acute blood loss anemia Is this a current diagnosis for this admission?: Yes - Additional Information Resuscitation Status: Full Code Discharge Diet: As Tolerated Discharge Activity: Balance Activity w/Rest, Keep Legs Elevated Home Medications: Zolpidem Tartrate [Ambien 10 mg Tablet] 10 mg PO QHS 11/09/11 Polyethylene Glycol 3350 [Miralax Powder 17 gm/Packet] 17 gm PO DAILY PRN Ascorbate Calcium/Bioflavonoid [Consuelo-C 1,000 mg Tablet] 1 tab PO DAILY PRN 12/30 Cholecalciferol (Vitamin D3) [Vitamin D] 1,000 unit PO DAILY 03/26/14 Folic Acid/Multivit-Min/Lutein [Centrum Silver Chewable Tablet] 1 tab PO DAILY 03/26/14 Cyanocobalamin (Vitamin B-12) [Vitamin B12] 2,500 mcg PO DAILY 01/20/17 Meloxicam [Mobic] 7.5 mg PO DAILY 02/02/17 [place]-3/Dha/Epa/Fish Oil [Fish Oil 1,000 mg Softgel] 1 cap PO DAILY 02/02/17 Oxycodone HCl [Oxy-Ir 5 mg Tablet] 5 mg PO Q6HP PRN #40 tablet 02/06/17 Rivaroxaban [Xarelto 10 mg Tablet] 10 mg PO QHS #20 tablet 02/06/17 History of Present Illness History of Present Illness: ANABEL EDEN is a 76 year old female with progressive right knee pain and functional disability sac and osteoarthritis. Patient is admitted for elective right knee arthroplasty. Hospital Course Hospital Course: She is admitted through the operating where she undergoes uncomplicated right knee arthroplasty. Postoperatively she has some mental confusion which is attributed to polypharmacy. She also developed an ileus, general surgery was consult, the situation resolved spontaneously. Physical Exam Vital Signs: Temp Pulse Resp BP Pulse Ox 37.0 C 77 15 159/68 H 99 02/06/17 10:48 02/06/17 10:48 02/06/17 10:48 02/06/17 10:48 02/06/17 10:48 General appearance: PRESENT: no acute distress Head exam: PRESENT: normocephalic Respiratory exam: PRESENT: unlabored Cardiovascular exam: PRESENT: RRR Pulses: PRESENT: +1 pedal pulses bilateral Vascular exam: PRESENT: normal capillary refill GI/Abdominal exam: PRESENT: soft Rectal exam: PRESENT: deferred Extremities exam: PRESENT: other - Right knee dressing is clean dry and intact. There is minimal pedal edema. Distal neurovascular examination is intact. Neurological exam: PRESENT: alert, awake, oriented to person, oriented to place , oriented to time, oriented to situation. ABSENT: motor sensory deficit Psychiatric exam: PRESENT: appropriate affect, normal mood. ABSENT: homicidal ideation, suicidal ideation Skin exam: PRESENT: dry, intact, warm. ABSENT: cyanosis, rash Results Laboratory Results: 02/05/17 05:15 02/05/17 05:15 Impressions: Knee X-Ray 02/02/17 09:09 IMPRESSION: 1. Intact knee replacement with expected postoperative changes. 2. Ossific fragment medially, see above. KUB X-Ray 02/05/17 00:00 IMPRESSION: There is gaseous distention of multiple bowel loops most consistent with an ileus pattern although that I cannot exclude an underlying obstruction. Clinical correlation followup is recommended. Other findings as noted above. Plan Discharge Plan: Patient to be discharged home with home health nursing, home health physical therapy, wheeled walker, bedside commode. Follow-up will be with Dr. Correia in the [facility] for surgery in 2 weeks for staple removal.
== END 2017-02-06 11:55 | disposition home health service (06) | DRG 470 ==
LOC: INOR 05:56 → 4W 11:56 → 4N 02-04 22:06
PROVIDERS: ADMIT Orthopaedic Surgery; ATTEND Orthopaedic Surgery
PROC: 0SRC0J9 Replacement of Right Knee Joint with Synthetic Substitute, Cemented, Open Approach (ICD-10-PCS; principal; 2017-02-04)
PROC: 30233N1 Transfusion of Nonautologous Red Blood Cells into Peripheral Vein, Percutaneous Approach (ICD-10-PCS; 2017-02-04)
PROC: 3E0234Z Introduction of Serum, Toxoid and Vaccine into Muscle, Percutaneous Approach (ICD-10-PCS; 2017-02-06)
DX: M17.11 Unilateral primary osteoarthritis, right knee (principal); D62 Acute posthemorrhagic anemia; K56.7 Ileus, unspecified; K22.70 Barrett's esophagus without dysplasia; M46.82 Other specified inflammatory spondylopathies, cervical region; M19.072 Primary osteoarthritis, left ankle and foot; M19.071 Primary osteoarthritis, right ankle and foot; M47.896 Other spondylosis, lumbar region; F32.9 Major depressive disorder, single episode, unspecified; Z23 Encounter for immunization; Z79.899 Other long term (current) drug therapy; Z90.710 Acquired absence of both cervix and uterus; Z87.891 Personal history of nicotine dependence; Z88.3 Allergy status to other anti-infective agents
CPT/HCPCS: 01402; 36415; 36430; 74000; 80048; 85027; 86850; 86900; 86901; 86920; 88305; 88311; 90686; 94799; C9290; G8978-GP; G8979-GP; G8987-GO; G8988-GO; J0690; J0696; J1200; J1741; J2250; J2270; J2405; J2704; J3010; J3370; J3490; J7050; J7060; J7120; P9016; S0119

== ENCOUNTER → 2017-02-08 | Outpatient (CLI) | payer MEDICARE, OTHER ==
[2017-02-08 11:55] LABS: ABSOLUTE BASOPHILS # (AUTO) 0.1 10^3/uL (0.0-0.2); ABSOLUTE EOSINOPHILS # (AUTO) 0.2 10^3/uL (0.0-0.6); ABSOLUTE LYMPHOCYTES (AUTO) 1.1 10^3/uL (0.5-4.7); ABSOLUTE MONOCYTES (AUTO) 0.5 10^3/uL (0.1-1.4); BASOPHILS % (AUTO) 1.2 % (0-2); EOSINOPHILS % (AUTO) 3.9 % (0-6); HEMATOCRIT 33.4 % (36.0-47.0); HEMOGLOBIN 11.6 g/dL (12.0-15.5); HGB HCT DIFFERENCE 1.4; LYMPHOCYTES % (AUTO) 22.6 % (13-45); MEAN CORPUSCULAR HEMOGLOBIN 29.9 pg (27.0-33.4); MEAN CORPUSCULAR HGB CONC 34.7 g/dL (32.0-36.0); MEAN CORPUSCULAR VOLUME 86 fl (80-97); MONOCYTES % (AUTO) 10.2 % (3-13); RED BLOOD COUNT 3.87 10^6/uL (3.72-5.28); RED CELL DISTRIBUTION WIDTH 15.1 % (11.5-14.0); SEGMENTED NEUTROPHILS % (AUTO) 62.1 % (42-78); WHITE BLOOD COUNT 4.8 10^3/uL (4.0-10.5)
[2017-02-08 12:18] LABS: ALANINE AMINOTRANSFERASE 35 U/L (9-52); ALBUMIN 3.8 g/dL (3.5-5.0); ALKALINE PHOSPHATASE 50 U/L (38-126); ANION GAP 12 (5-19); ASPARTATE AMINO TRANSFERASE 30 U/L (14-36); BILIRUBIN,DIRECT 0.4 mg/dL (0.0-0.4); BILIRUBIN,TOTAL 1.4 mg/dL (0.2-1.3); BLOOD UREA NITROGEN 16 mg/dL (7-20); CALCIUM 9.1 mg/dL (8.4-10.2); CARBON DIOXIDE 29 mmol/L (22-30); CHLORIDE 103 mmol/L (98-107); CREATININE RESULT 0.52 mg/dL (0.52-1.25); GLUCOSE 95 mg/dL (75-110); POTASSIUM 3.2 mmol/L (3.6-5.0); TOTAL PROTEIN 6.4 g/dL (6.3-8.2)
== END ==
LOC: OD 10:31
PROVIDERS: ATTEND Obstetrics & Gynecology
DX: Z01.818 Encounter for other preprocedural examination (principal); K56.7 Ileus, unspecified; R11.2 Nausea with vomiting, unspecified
CPT/HCPCS: 36415; 80053; 85025

== ENCOUNTER 2017-02-09 10:57 | Emergency (ER) | payer MEDICARE, OTHER ==
--- NOTE | 2017-02-09 11:32 | ER Document Report ---
ED Medical Screen (RME) - General Chief Complaint: Possible Overdose Stated Complaint: PER DR EVANS Time Seen by Provider: 02/09/17 11:29 Notes: Patient brought in by family for confusion. Patient recently had knee surgery. She does take Ambien and Benadryl. She was last seen normal approximate 930 last evening. Family member state in the middle the night at approximately 5: 30 in the morning she started to wake up repeatedly and become confused. She was noticed by family to say she needed Benadryl but then grab 1 of her Ambien. Family is concerned that patient may have taken too many Ambien. Patient is less confused now per family. No other deficits have been appreciated. TRAVEL OUTSIDE OF THE [place] IN LAST 30 DAYS: No - Related Data Allergies/Adverse Reactions: nitrofurantoin [From Macrobid] Allergy (Intermediate, Verified 02/09/17 11:08) Nausea nitrofurantoin macrocrystalline [From Macrobid] Allergy (Intermediate, Verified 02/09/17 11:08) Nausea Past Medical History - Past Medical History Cardiac Medical History: Denies: Hx Atrial Fibrillation, Hx Congestive Heart Failure, Hx Coronary Artery Disease, Hx Heart Attack, Hx Hypercholesterolemia, Hx Hypertension, Hx Peripheral Vascular Disease, Hx Heart Murmur Pulmonary Medical History: Denies: Hx Asthma, Hx Bronchitis, Hx COPD, Hx Pneumonia Neurological Medical History: Reports: Hx Seizures - 35-40 years ago, unknown cause. Denies: Hx Cerebrovascular Accident Renal/ Medical History: Denies: Hx Peritoneal Dialysis Malignancy Medical History: Denies: Hx Leukemia GI Medical History: Reports: Hx Gastroesophageal Reflux Disease - barretts esophagus. Denies: Hx Crohn's Disease, Hx Hepatitis, Hx Hiatal Hernia, Hx Irritable Bowel, Hx Liver Failure, Hx Pancreatitis, Hx Ulcer Musculoskeltal Medical History: Reports Hx Arthritis - neck, lower back, ankles , Denies Hx Fibromyalgia, Denies Hx Multiple Sclerosis, Denies Hx Muscular Dystrophy Psychiatric Medical History: Reports: Hx Depression Denies: Hx Bipolar Disorder, Hx Dementia, Hx Post Traumatic Stress Disorder, Hx Schizophrenia Traumatic Medical History: Denies: Hx Fractures Infectious Medical History: Denies: Hx Hepatitis, Hx HIV Past Surgical History: Reports: Hx Appendectomy, Hx Bowel Surgery - colon surgery , Hx Hysterectomy, Hx Tonsillectomy. Denies: Hx Section, Hx Cholecystectomy, Hx Colostomy, Hx Coronary Artery Bypass Graft, Hx Gastric Bypass Surgery, Hx Herniorrhaphy, Hx Mastectomy, Hx Open Heart Surgery, Hx Pacemaker, Hx Tubal Ligation - Immunizations Hx Diphtheria, Pertussis, Tetanus Vaccination: Yes History of Influenza Vaccine for 01/2017 - 06/2017 Season: No Physical Exam - Vital signs Vitals: Temp Pulse Resp BP Pulse Ox 98.5 F 93 12 147/71 H 98 02/09/17 11:11 02/09/17 11:11 02/09/17 11:11 02/09/17 11:11 02/09/17 11:11 Course - Vital Signs Vital signs: Temp Pulse Resp BP Pulse Ox 98.5 F 93 12 147/71 H 98 02/09/17 11:11 02/09/17 11:11 02/09/17 11:11 02/09/17 11:11 02/09/17 11:11
[2017-02-09 12:02] LABS: ABSOLUTE EOSINOPHILS # (AUTO) 0.2 10^3/uL (0.0-0.6); ABSOLUTE LYMPHOCYTES (AUTO) 0.9 10^3/uL (0.5-4.7); ABSOLUTE MONOCYTES (AUTO) 0.5 10^3/uL (0.1-1.4); ABSOLUTE NEUT (AUTO) 3.2 10^3/uL (1.7-8.2); BASOPHILS % (AUTO) 0.9 % (0-2); EOSINOPHILS % (AUTO) 3.9 % (0-6); HEMATOCRIT 33.8 % (36.0-47.0); HEMOGLOBIN 11.7 g/dL (12.0-15.5); HGB HCT DIFFERENCE 1.3; LYMPHOCYTES % (AUTO) 18.9 % (13-45); MEAN CORPUSCULAR HEMOGLOBIN 29.7 pg (27.0-33.4); MEAN CORPUSCULAR HGB CONC 34.6 g/dL (32.0-36.0); MEAN CORPUSCULAR VOLUME 86 fl (80-97); RED BLOOD COUNT 3.93 10^6/uL (3.72-5.28); RED CELL DISTRIBUTION WIDTH 15.2 % (11.5-14.0); SEGMENTED NEUTROPHILS % (AUTO) 66.3 % (42-78); WHITE BLOOD COUNT 4.9 10^3/uL (4.0-10.5)
[2017-02-09 12:06] LABS: APPEARANCE,URINE SLIGHTLY-CLOUDY; BILIRUBIN,URINE NEGATIVE (NEGATIVE); GLUCOSE, URINE NEGATIVE (NEGATIVE); KETONES,URINE TRACE mg/dL (NEGATIVE); LEUKOCYTE ESTERASE,URINE NEGATIVE (NEGATIVE); NITRITE,URINE NEGATIVE (NEGATIVE); PROTEIN,URINE NEGATIVE (NEGATIVE); URINE SPECIFIC GRAVITY 1.016; UROBILINOGEN,URINE NEGATIVE mg/dL (<2.0)
[2017-02-09 12:22] LABS: ALANINE AMINOTRANSFERASE 38 U/L (9-52); ALBUMIN 3.7 g/dL (3.5-5.0); ALKALINE PHOSPHATASE 46 U/L (38-126); ANION GAP 13 (5-19); ASPARTATE AMINO TRANSFERASE 28 U/L (14-36); BILIRUBIN,DIRECT 0.4 mg/dL (0.0-0.4); BLOOD UREA NITROGEN 19 mg/dL (7-20); CALCIUM 9.1 mg/dL (8.4-10.2); CARBON DIOXIDE 30 mmol/L (22-30); CHLORIDE 102 mmol/L (98-107); CREATININE RESULT 0.57 mg/dL (0.52-1.25); GLUCOSE 124 mg/dL (75-110); POTASSIUM 3.4 mmol/L (3.6-5.0); TOTAL PROTEIN 6.1 g/dL (6.3-8.2)
--- NOTE | 2017-02-09 12:31 | RADIOLOGY REPORT (SQ) ---
EXAM DESCRIPTION: CT HEAD WITHOUT COMPLETED DATE/TIME: 02/09/2017 12:10 pm REASON FOR STUDY: ams COMPARISON: None. TECHNIQUE: Axial images acquired through the brain without intravenous contrast. Images reviewed wi th bone, brain and subdural windows. Images stored on PACS. All CT scanners at this facility use dose modulation, iterative reconstruction, and/or weight based d osing when appropriate to reduce radiation dose to as low as reasonably achievable (ALARA). [facility]: Dose Right [facility]: CareDose [facility]: Dose Right [facility]: Teradose 4D [facility]: Garden Mate RADIATION DOSE: Up-to-date CT equipment and radiation dose reduction techniques were employed. CTDIv ol: 64.6 mGy. DLP: 1163 mGy-cm. mGy. LIMITATIONS: None. FINDINGS: VENTRICLES: Prominent. CEREBRUM: No masses. No hemorrhage. No midline shift. Areas of low density in the white matter mos t likely due to chronic micro-vascular ischemic change. No evidence for acute infarction. CEREBELLUM: No masses. No hemorrhage. No alteration of density. No evidence for acute infarction. EXTRAAXIAL SPACES: Mild age-related involutional change. No fluid collections. No masses. ORBITS AND GLOBE: No intra- or extraconal masses. Normal contour of globe without masses. CALVARIUM: No fracture. PARANASAL SINUSES: No fluid or mucosal thickening. SOFT TISSUES: No mass or hematoma. OTHER: No other significant finding. IMPRESSION: MILD CHRONIC CHANGES OF ATROPHY AND MICROVASCULAR ISCHEMIA. NO ACUTE PROCESS. EVIDENCE OF ACUTE STROKE: NO. TECHNICAL DOCUMENTATION: JOB ID: [id number] Quality ID # [id number]: Final reports with documentation of one or more dose reduction techniques (e.g., Au tomated exposure control, adjustment of the mA and/or kV according to patient size, use of iterative reconstruction technique) 2010 [employer]- All Rights Reserved
[2017-02-09] MEDS ORDERED: FAMOTIDINE 20 MG TABLET PO ONE (12:45)
--- NOTE | 2017-02-09 13:02 | ER Document Report ---
ED General - General Chief Complaint: Possible Overdose Stated Complaint: POSSIBLE OVERDOSE Time Seen by Provider: 02/09/17 11:29 Mode of Arrival: Ambulatory Information source: Patient Notes: patient is a 76-year-old female who presents to the ER today for confusion since last night. Patient was released from the hospital 3 days ago after a total knee replacement and daughter states that she was very confused and was saying "crazy things" in the hospital during that stay. daughter says that last night she took an Ambien before bed and that she was up multiple times but kept telling the daughter that she was "just getting something "and going back to bed. Patient then told daughter that she took an extra Benadryl to try to get some sleep. Daughter states that whenever she got up with her she was saying things like "I am just trying to get the acid reflux off the wall." And then another time "I am just trying to get the acid reflux out of the closet." Patient then showed the daughter the "extra Benadryl" that she took and it was actually an Ambien bottle. Daughter states that she has no idea what she actually may have taken last night. She does say that the confusion is better at this time but that she is still saying a few random things that do not make sense. They did see her primary care provider, Dr. Thomson, this morning who told them to go to the emergency department to get ruled out for stroke. Patient denies any weakness anywhere, numbness or tingling, headache, blurred vision. TRAVEL OUTSIDE OF THE [place] IN LAST 30 DAYS: No - Related Data Allergies/Adverse Reactions: nitrofurantoin [From Macrobid] Allergy (Intermediate, Verified 02/09/17 11:08) Nausea nitrofurantoin macrocrystalline [From Macrobid] Allergy (Intermediate, Verified 02/09/17 11:08) Nausea Past Medical History - General Information source: Patient - Social History Smoking Status: Never Smoker Chew tobacco use (# tins/day): No Frequency of alcohol use: Rare Drug Abuse: None Family History: None Patient has suicidal ideation: No Patient has homicidal ideation: No - Past Medical History Cardiac Medical History: Denies: Hx Atrial Fibrillation, Hx Congestive Heart Failure, Hx Coronary Artery Disease, Hx Heart Attack, Hx Hypercholesterolemia, Hx Hypertension, Hx Peripheral Vascular Disease, Hx Heart Murmur Pulmonary Medical History: Denies: Hx Asthma, Hx Bronchitis, Hx COPD, Hx Pneumonia Neurological Medical History: Reports: Hx Seizures - 35-40 years ago, unknown cause. Denies: Hx Cerebrovascular Accident Renal/ Medical History: Denies: Hx Peritoneal Dialysis Malignancy Medical History: Denies: Hx Leukemia GI Medical History: Reports: Hx Gastroesophageal Reflux Disease - barretts esophagus. Denies: Hx Crohn's Disease, Hx Hepatitis, Hx Hiatal Hernia, Hx Irritable Bowel, Hx Liver Failure, Hx Pancreatitis, Hx Ulcer Musculoskeltal Medical History: Reports Hx Arthritis - neck, lower back, ankles , Denies Hx Fibromyalgia, Denies Hx Multiple Sclerosis, Denies Hx Muscular Dystrophy Psychiatric Medical History: Reports: Hx Depression Denies: Hx Bipolar Disorder, Hx Dementia, Hx Post Traumatic Stress Disorder, Hx Schizophrenia Traumatic Medical History: Denies: Hx Fractures Infectious Medical History: Denies: Hx Hepatitis, Hx HIV Past Surgical History: Reports: Hx Appendectomy, Hx Bowel Surgery - colon surgery , Hx Hysterectomy, Hx Tonsillectomy. Denies: Hx Section, Hx Cholecystectomy, Hx Colostomy, Hx Coronary Artery Bypass Graft, Hx Gastric Bypass Surgery, Hx Herniorrhaphy, Hx Mastectomy, Hx Open Heart Surgery, Hx Pacemaker, Hx Tubal Ligation - Immunizations Hx Diphtheria, Pertussis, Tetanus Vaccination: Yes Hx Pneumococcal Vaccination: 04/18/11 Review of Systems - Review of Systems Constitutional: No symptoms reported EENT: No symptoms reported Cardiovascular: See HPI Respiratory: No symptoms reported Gastrointestinal: No symptoms reported Genitourinary: No symptoms reported Female Genitourinary: No symptoms reported Musculoskeletal: No symptoms reported Skin: No symptoms reported Hematologic/Lymphatic: No symptoms reported Neurological/Psychological: See HPI Physical Exam - Vital signs Vitals: Temp Pulse Resp BP Pulse Ox 98.5 F 93 12 147/71 H 98 02/09/17 11:11 02/09/17 11:11 02/09/17 11:11 02/09/17 11:11 02/09/17 11:11 - Notes Notes: PHYSICAL EXAMINATION: GENERAL: elderly, in no acute distress. HEAD: Atraumatic, normocephalic. EYES: Pupils equal round and reactive to light, extraocular movements intact, sclera anicteric, conjunctiva are normal. ENT: ear canals without erythema or foreign body, TMs pearly lopez with good bony landmarks, nares patent, oropharynx clear without exudates. Moist mucous membranes. NECK: Normal range of motion, supple without lymphadenopathy LUNGS: CTAB and equal. No wheezes rales or rhonchi. HEART: Regular rate and rhythm without murmurs ABDOMEN: Soft, no tenderness. No guarding, no rebound BACK: no vertebral tenderness, normal ROM GI/: no CVA tenderness EXTREMITIES: Normal range of motion, no pitting edema. No cyanosis. NEUROLOGICAL: Alert and oriented 3, Cranial nerves grossly intact. good and equal strength bilaterally, follows commands well, no facial droop or slurred speech, Normal sensory/motor exams. PSYCH: Normal mood, normal affect. SKIN: Warm, Dry, normal turgor, no rashes or lesions noted Course - Vital Signs Vital signs: Temp Pulse Resp BP Pulse Ox 97.5 F 81 18 149/77 H 98 02/09/17 13:13 02/09/17 13:13 02/09/17 13:13 02/09/17 13:13 02/09/17 13:13 - Laboratory Result Diagrams: 02/09/17 11:40 02/09/17 11:40 Laboratory results interpreted by me: 02/09/17 02/09/17 02/09/17 11:40 11:40 11:40 Hgb 11.7 L Hct 33.8 L RDW 15.2 H Potassium 3.4 L Glucose 124 H Total Protein 6.1 L Urine Ketones TRACE H Discharge - Discharge Clinical Impression: Confusion Constipation Qualifiers: Constipation type: unspecified constipation type Qualified Code(s): K59.00 - Constipation, unspecified Condition: Stable Disposition: HOME, SELF-CARE Additional Instructions: Return immediately for any new or worsening symptoms. Follow up with primary care provider, call tomorrow to make followup appointment. Prescriptions: Na Phos,M-B/Na Phos,Di-Ba [Fleet Enema (Adult) 133 ml] 133 ml SC ONCE PRN #1 enema PRN Reason: Referrals: VICTORINO THOMSON MD [Primary Care Provider] - Follow up as needed
[2017-02-09 13:18] VITALS: BP 149/77
== END 2017-02-09 13:27 | disposition home or self-care (01) ==
LOC: ER 10:57
DX: R41.0 Disorientation, unspecified (principal); K59.00 Constipation, unspecified; Z79.899 Other long term (current) drug therapy
CPT/HCPCS: 99284; 36415; 85025; 80053; 81001; 70450; A9270

== ENCOUNTER 2017-07-11 08:16 | Day surgery (SDC) | payer MEDICARE, OTHER ==
[~2017-07-11 08:16] MED LIST changes: -BUPIVACAINE INJ/PF LIPOSOME/PF 266 MG/20 ML SDV INJ PRN; -CEFAZOLIN INJ 1 GM VIAL IV PRN; -IBUPROFEN 800 MG in NORMAL SALINE 250 ML IV PRN; -LACTATED RINGERS 1000 ML IV PRN; -LANSOPRAZOLE 15 MG TAB.RAP.DR PO PRN; -LIDOCAINE 0.5% INJ-PF (5 MG/ML) 50 ML SDV SUBCUT PRN; -OXYCODONE HCL SR 10 MG TABLET PO PRN; +PROPOFOL INJ 200 MG/20 ML VIAL IV ONE; -VANCOMYCIN HCL 1,000 MG in DEXTROSE 5%-WATER 250 ML IV PRN
[2017-07-11 11:04] VITALS: BP 116/60
--- NOTE | 2017-07-11 13:22 | Operative Report ---
Operative Report DATE OF SURGERY: 07/11/17 Operative Report: The risks, benefits and alternatives of the procedure including risks of bleeding, perforation requiring surgery are explained to the patient in detail and informed consent is obtained. Patient was taken back to the endoscopy suite and placed in the left, lateral decubital position. Timeout was called. Propofol medications administered. A rectal examination is done which did not reveal any masses, tears or fissures. An Olympus videoscope was inserted into the patient's rectum. The scope was then carefully advanced all the way to the cecum. The cecum is identified by the usual anatomical landmarks including the ileocecal valve as well as the appendiceal office. Photodocumentation was obtained. Scope was then sequentially pulled back via the various segments of the colon including the ascending colon, hepatic flexure, transverse colon, splenic flexure, descending colon and finally in to the rectosigmoid portions of the colon. Retroflexion maneuver is performed. The risks benefits and alternatives of the procedure explained to the patient in detail and informed consent is obtained.A GIF Olympus video scope was inserted into the patient's mouth and hypopharynx ,the esophagus is identified intubated and insufflated, the scope was then advanced through the esophagus stomach and duodenum ,retroflexion maneuver is done, the esophagus stomach and first and second portions of the duodenum examined PREOPERATIVE DIAGNOSIS: Personal history of Chapa's. Personal history of polyps POSTOPERATIVE DIAGNOSIS: Chapa's tissue identified and ablated in situ. Normal screening colonoscopy OPERATION: Diagnostic colonoscopy. EGD with ablation SURGEON: MARIANELA LARSON ANESTHESIA: LMAC TISSUE REMOVED OR ALTERED: As noted above. COMPLICATIONS: None. ESTIMATED BLOOD LOSS: None. INTRAOPERATIVE FINDINGS: As noted above. PROCEDURE: Patient tolerated procedure well. No immediate postprocedure complications are noted. Patient discharged in good condition. Discharge date 07/11/2017. Discharge diet: Regular. Discharge activity: Regular. 2-3 week follow-up to discuss findings. Patient is instructed call the office or proceed to the emergency room should there be any further problems or questions. We will wait on pathology. 10 year surveillance colonoscopy.
== END 2017-07-11 11:00 | disposition home or self-care (01) ==
LOC: END 08:16
PROVIDERS: ATTEND Internal Medicine Gastroenterology
DX: Z85.038 Personal history of other malignant neoplasm of large intestine (principal); K22.719 Barrett's esophagus with dysplasia, unspecified; E78.00 Pure hypercholesterolemia, unspecified; M19.90 Unspecified osteoarthritis, unspecified site; Z79.899 Other long term (current) drug therapy; Z87.891 Personal history of nicotine dependence; Z79.891 Long term (current) use of opiate analgesic
CPT/HCPCS: 43270; 45378; J2704; 813

== ENCOUNTER 2018-05-02 09:41 | Day surgery (SDC) | payer MEDICARE, OTHER ==
[2018-04-24 09:36] LABS: HEMATOCRIT 37.9 % (36.0-47.0); HEMOGLOBIN 13.1 g/dL (12.0-15.5); MEAN CORPUSCULAR HEMOGLOBIN 30.7 pg (27.0-33.4); MEAN CORPUSCULAR HGB CONC 34.5 g/dL (32.0-36.0); MEAN CORPUSCULAR VOLUME 89 fl (80-97); PLATELET COUNT 459 10^3/uL (150-450); RED BLOOD COUNT 4.26 10^6/uL (3.72-5.28); RED CELL DISTRIBUTION WIDTH 13.6 % (11.5-14.0); WHITE BLOOD COUNT 4.5 10^3/uL (4.0-10.5)
[2018-04-24 09:43] LABS: APPEARANCE,URINE SLIGHTLY-CLOUDY; BILIRUBIN,URINE NEGATIVE (NEGATIVE); CALCIUM OXALATE CRYSTALS,URINE FEW /HPF; COLOR,URINE YELLOW; GLUCOSE, URINE NEGATIVE (NEGATIVE); KETONES,URINE NEGATIVE (NEGATIVE); LEUKOCYTE ESTERASE,URINE NEGATIVE (NEGATIVE); NITRITE,URINE NEGATIVE (NEGATIVE); PROTEIN,URINE NEGATIVE (NEGATIVE); URINE SPECIFIC GRAVITY 1.015; UROBILINOGEN,URINE NEGATIVE mg/dL (<2.0)
[2018-04-24 10:05] LABS: ANION GAP 10 (5-19); BLOOD UREA NITROGEN 26 mg/dL (7-20); CALCIUM 10.8 mg/dL (8.4-10.2); CARBON DIOXIDE 31 mmol/L (22-30); CHLORIDE 99 mmol/L (98-107); GLUCOSE 96 mg/dL (75-110); POTASSIUM 4.6 mmol/L (3.6-5.0); SODIUM 139.7 mmol/L (137-145)
--- NOTE | 2018-04-24 12:58 | EKG REPORT ---
SEVERITY:- NORMAL ECG - SINUS RHYTHM : Confirmed by: Balta Jimenez MD 24-Apr-2018 12:58:11
[~2018-05-02 09:41] MED LIST changes: +CEFAZOLIN 1 GM/D5W RTU 1 GM/50 ML RTUPB IV PRN; +CEFAZOLIN SODIUM 2 GM in DEXTROSE 5%-WATER 100 ML IV PRN; +DEXAMETHASONE SOD PHOSPHATE INJ 4 MG/1 ML VIAL ONE; +FENTANYL CITRATE INJ/PF 100 MCG/2 ML AMPUL ONE; +LACTATED RINGERS 1000 ML IV PRN; +LIDOCAINE 0.5% INJ-PF (5 MG/ML) 50 ML SDV SUBCUT PRN; +LIDOCAINE 2% INJ-PF (20 MG/ML) 10 ML AMPUL ONE; +MIDAZOLAM 2 MG/2 ML INJ ONE; +ONDANSETRON HCL INJ/PF 4 MG/2 ML SDV ONE
--- NOTE | 2018-05-02 10:14 | RADIOLOGY REPORT (SQ) ---
EXAM DESCRIPTION: CHEST SINGLE VIEW COMPLETED DATE/TIME: 05/02/2018 10:03 am REASON FOR STUDY: PREOP COMPARISON: 2008 EXAM PARAMETERS: NUMBER OF VIEWS: One view. TECHNIQUE: Single frontal radiographic view of the chest acquired. RADIATION DOSE: NA LIMITATIONS: None. FINDINGS: LUNGS AND PLEURA: There is a 2 cm oval density overlying the right lower lung. Prominent nipple shadow on the left. No effusions. MEDIASTINUM AND HILAR STRUCTURES: No masses. Contour normal. HEART AND VASCULAR STRUCTURES: Heart normal in size. Normal vasculature. BONES: No acute findings. HARDWARE: None in the chest. OTHER: No other significant finding. IMPRESSION: Questionable lung nodule on the right. Consider noncontrast CT. TECHNICAL DOCUMENTATION: JOB ID: [id number] [employer]- All Rights Reserved Reading location - IP/workstation name: [email or web address]
[2018-05-02] MEDS ORDERED: BUPIVACAINE HCL 0.5 % INJ/PF 30 ML SDV ONE (10:31)
[2018-05-02] MEDS ORDERED: ONDANSETRON HCL INJ/PF 4 MG/2 ML SDV IV PRN ×2 (11:50→12:14)
[2018-05-02] MEDS ORDERED: FENTANYL CITRATE INJ/PF 100 MCG/2 ML AMPUL IV PRN ×3 (11:50)
[2018-05-02] MEDS ORDERED: OXYCODONE-ACETAMINOPHEN 5-325 MG TABLET PO PRN ×2 (11:50)
[2018-05-02] MEDS ORDERED: MEPERIDINE HCL/PF INJ 25 MG/1 ML DISP.SYRIN IV PRN (11:50)
[2018-05-02] MEDS ORDERED: PROMETHAZINE HCL INJ 25 MG/1 ML VIAL IV PRN ×2 (11:50)
[2018-05-02] MEDS ORDERED: MORPHINE SULFATE 10 MG/ML INJ IV PRN (11:50)
[2018-05-02] MEDS ORDERED: DIPHENHYDRAMINE HCL 50 MG/ML VIAL IV PRN (11:50)
[2018-05-02] MEDS ORDERED: HYDROCODONE/ACETAMINOPHEN 5-325 MG TABLET PO PRN (12:14)
--- NOTE | 2018-05-02 12:15 | Discharge Summary ---
Discharge Summary (SDC) - Discharge Final Diagnosis: Ganglion right wrist Date of Surgery: 05/02/18 Discharge Date: 05/02/18 Condition: Good Treatment or Instructions: Schedule Follow Up w/ Dr. Nick De Anda @ [facility] for Surgery to be seen in 10-14 days or as scheduled [place]: [place]: [place]: May remove dressing on postop day #3, keep incision covered and dry. Ice and elevate May begin finger range of motion attempting to make full fist. Stool softener of choice when on pain medication. USE OF [id number]-[id number]-YOMGHMY IBUPROFEN: Ibuprofen (Advil, Nuprin, Medipren, Motrin IB) is a medication for fever and pain control. In addition, it has anti- inflammatory effects which may be beneficial, especially in the treatment of injuries. It's best to take ibuprofen with food. Persons with ulcer disease or allergy to aspirin should notify their physician of this before taking ibuprofen. Ibuprofen can be given every four to six hours, for a total of four doses daily. Age Pain or fever dose Antiinflammatory dose 6-8 yr 200 mg (1 tab) 200 mg (1 tab) 9-11 yr 200 mg (1 tab) 200-400 mg (1-2 tab) 11-14 yr 200-400 mg (1-2 tab) 400 mg (2 tab) 15-adult 400 mg (2 tab) 600 mg (3 tab) ORAL NARCOTIC MEDICATION: You have been given a prescription for pain control. This medication is a narcotic. It's best taken with food, as nausea can result if taken on an empty stomach. Don't operate machinery or drive within six hours of taking this medication. Do not combine this medicine with alcohol, or with any medication which can cause sedation (such as cold tablets or sleeping pills) unless you get permission from the physician. Narcotics tend to cause constipation. If possible, drink plenty of fluids and eat a diet high in fiber and fruits. Please be aware that prescription narcotics also have the potential for abuse. People become addicted to these medications because of the general sense of wellbeing that they induce. This feeling along with a significant reduction in tension, anxiety, and aggression provides a stimulating seductive quality to these drugs. Once your pain is under control, we encourage you to discard your unused narcotics. Prescriptions: Hydrocodone/Acetaminophen [Jenison 5-325 mg Tablet] 1 tab PO Q6 PRN #10 tablet PRN Reason: Referrals: VICTORINO THOMSON MD [Primary Care Provider] - Discharge Diet: As Tolerated Respiratory Treatments at Home: Deep Breathing/Coughing Discharge Activity: No Lifting Over 10 Pounds, No Lifting/Push/Pulling Report the Following to Your Physician Immediately: Fever over 101 Degrees, Unusual Bleeding, Redness, Swelling, Warmth
--- NOTE | 2018-05-02 12:17 | Operative Report ---
Operative Report DATE OF SURGERY: 05/02/18 PREOPERATIVE DIAGNOSIS: Ganglion cyst right wrist POSTOPERATIVE DIAGNOSIS: Same OPERATION: Excision ganglion cyst right wrist SURGEON: EMELIA GUAMAN ANESTHESIA: GA TISSUE REMOVED OR ALTERED: Cyst COMPLICATIONS: None ESTIMATED BLOOD LOSS: Minimal PROCEDURE: Indication for above procedure: 77-year-old female with mass along the ulnar aspect of her right wrist consistent with ganglion. Patient had x-rays demonstrated advanced degenerative changes of the DRUJ which is likely contributing to the patient's mass. We discussed treatment options including operative versus nonoperative intervention including possible recurrence given the cause. After discussing the risks and benefits patient has elected to proceed with operative intervention. Procedure In Detail: Patient was seen and evaluated in the preoperative holding area. The upper extremity was initialized and marked. Patient received 2g of Ancef IV for bacterial prophylaxis. Patient was taken back to the operative room where transferred to the operative table and placed under general anesthesia. Once th ey were adequately anesthetized a nonsterile tourniquet was placed on the upper extremity. A surgical team debriefing was performed ensuring all instrumentation was available, the surgical procedure was discussed with possible concerns reviewed. The upper extremity was prepped with chlorhexidine and alcohol and draped in a sterile fashion. A timeout was done identifying correct patient, procedure and extremity everyone in attendance agree with this and verbalized no concerns. The extremity was exsanguinated the tourniquet was inflated to 250 mmHg. Longitudinal skin incision was made along the ulnar aspect of the wrist. Blunt dissection was performed dorsal ulnar sensory branch was identified and retracted. Ganglion root was isolated and tracked to the distal radial ulnar joint. The ulnar neurovascular bundle was retracted volarly to continue isolating the ganglial root. Under direct visualization the root of the ganglion cyst was adequately excised as it exited the volar aspect of the DRUJ, this area was coagulated with bipolar cautery. Tourniquet was then deflated. Any peripheral bleeding was controlled with bipolar cautery into the wound was dry. Wound was copiously irrigated with normal saline. Skin was closed with interrupted 4-0 nylon suture. 10 cc of 0.5% bupivacaine without epinephrine was injected for postoperative pain control. Patient was placed in a soft dressing. Sponge counts, instrument counts, needle counts were correct. Patient was then awoken from anesthesia. Transferred from the operating room table to the operating room stretcher. There was no intraoperative complications patient tolerated procedure well stable to PACU.
[2018-05-02 14:19] VITALS: BP 109/48
== END 2018-05-02 13:40 | disposition home or self-care (01) ==
LOC: OROUT 09:41
PROVIDERS: ATTEND Orthopaedic Surgery
DX: M67.431 Ganglion, right wrist (principal); E78.5 Hyperlipidemia, unspecified; F03.90 Unspecified dementia, unspecified severity, without behavioral disturbance, psychotic disturbance, mood disturbance, and anxiety; Z88.5 Allergy status to narcotic agent; Z79.899 Other long term (current) drug therapy; Z01.818 Encounter for other preprocedural examination
CPT/HCPCS: 93005; 36415; 85027; 80048; 81001; 88304 ×2; 71045; 93010; 25111; J2250; J3490 ×3; J0690; J1100; J3010; J2405; J2704; 1810

== ENCOUNTER 2019-03-22 13:03 | Emergency (ER) | payer MEDICARE, OTHER ==
[2019-03-22] MEDS ORDERED: ONDANSETRON HCL INJ/PF 4 MG/2 ML SDV IV ONE ×2 (13:34→16:19)
[2019-03-22] MEDS ORDERED: NORMAL SALINE 1000 ML 1,000 ML IV ONE ×2 (13:35→16:18)
--- NOTE | 2019-03-22 13:38 | ER Document Report ---
ED Medical Screen (RME) - General Stated Complaint: POSSIBLE DEHYDRATION Time Seen by Provider: 03/22/19 13:34 Primary Care Provider: MATHEUS RUBI MD [Primary Care Provider] - Follow up as needed Notes: Patient is a 78-year-old female who presents to the emergency department with a chief complaint of vomiting. Patient states that she started vomiting 4 days ago. She went to urgent care today and was referred here to the emergency de partment. Patient states that she has not been able to keep anything down since then. Her last bowel movement was about 2 to 3 days ago. Patient states that she really does not have a lot of pain, but more of an aching feeling from vomiting. Has a history of colon cancer in the past and had it removed. Exam: Soft mildly tender abdomen. I have greeted and performed a rapid initial assessment of this patient. A comprehensive ED assessment and evaluation of the patient, analysis of test results and completion of medical decision making process will be conducted by an additional ED providers. TRAVEL OUTSIDE OF THE [place] IN LAST 30 DAYS: No - Related Data Allergies/Adverse Reactions: nitrofurantoin [From Macrobid] Allergy (Intermediate, Verified 03/22/19 13:25) Nausea nitrofurantoin macrocrystalline [From Macrobid] Allergy (Intermediate, Verified 03/22/19 13:25) Nausea Past Medical History - Past Medical History Cardiac Medical History: Denies: Hx Atrial Fibrillation, Hx Congestive Heart Failure, Hx Coronary Artery Disease, Hx Heart Attack, Hx Hypercholesterolemia, Hx Hypertension, Hx Peripheral Vascular Disease, Hx Heart Murmur Pulmonary Medical History: Denies: Hx Asthma, Hx Bronchitis, Hx COPD, Hx Pneumonia Neurological Medical History: Reports: Hx Seizures - 35-40 years ago, unknown cause. Denies: Hx Cerebrovascular Accident, Hx Parkinson's Disease Renal/ Medical History: Denies: Hx Peritoneal Dialysis Malignancy Medical History: Denies: Hx Leukemia GI Medical History: Reports: Hx Gastroesophageal Reflux Disease - barretts esophagus. Denies: Hx Crohn's Disease, Hx Hepatitis, Hx Hiatal Hernia, Hx Irritable Bowel, Hx Liver Failure, Hx Pancreatitis, Hx Ulcer Musculoskeltal Medical History: Reports Hx Arthritis - neck, lower back, ankles, Denies Hx Fibromyalgia, Denies Hx Multiple Sclerosis, Denies Hx Muscular Dystrophy Psychiatric Medical History: Reports: Hx Depression Denies: Hx Bipolar Disorder, Hx Dementia, Hx Post Traumatic Stress Disorder, Hx Schizophrenia Traumatic Medical History: Denies: Hx Fractures Infectious Medical History: Denies: Hx Hepatitis, Hx HIV Past Surgical History: Reports: Hx Appendectomy, Hx Bowel Surgery - colon surgery , Hx Hysterectomy, Hx Tonsillectomy. Denies: Hx Section, Hx Cholecystectomy, Hx Colostomy, Hx Coronary Artery Bypass Graft, Hx Gastric Bypass Surgery, Hx Herniorrhaphy, Hx Mastectomy, Hx Open Heart Surgery, Hx Pacemaker, Hx Tubal Ligation - Immunizations Hx Diphtheria, Pertussis, Tetanus Vaccination: Yes Doctor's Discharge - Discharge Referrals: MATHEUS RUBI MD [Primary Care Provider] - Follow up as needed
[2019-03-22 13:55] LABS: APPEARANCE,URINE SLIGHTLY-CLOUDY; BILIRUBIN,URINE NEGATIVE (NEGATIVE); COLOR,URINE YELLOW; GLUCOSE, URINE NEGATIVE (NEGATIVE); KETONES,URINE NEGATIVE (NEGATIVE); LEUKOCYTE ESTERASE,URINE TRACE (NEGATIVE); NITRITE,URINE NEGATIVE (NEGATIVE); PROTEIN,URINE NEGATIVE (NEGATIVE); URINE SPECIFIC GRAVITY 1.014; UROBILINOGEN,URINE NEGATIVE mg/dL (<2.0)
[2019-03-22 14:35] LABS: HEMATOCRIT 36.8 % (36.0-47.0); HEMOGLOBIN 12.6 g/dL (12.0-15.5); MEAN CORPUSCULAR HEMOGLOBIN 30.5 pg (27.0-33.4); MEAN CORPUSCULAR HGB CONC 34.2 g/dL (32.0-36.0); MEAN CORPUSCULAR VOLUME 89 fl (80-97); PLATELET COUNT 217 10^3/uL (150-450); RED BLOOD COUNT 4.12 10^6/uL (3.72-5.28); RED CELL DISTRIBUTION WIDTH 13.9 % (11.5-14.0)
[2019-03-22 14:55] LABS: ABSOLUTE LYMPHOCYTES# (MANUAL) 0.9 10^3/uL (0.5-4.7); ABSOLUTE MONOCYTES # (MANUAL) 0.2 10^3/uL (0.1-1.4); BASOPHILS % (MANUAL) 1 % (0-2); EOSINOPHILS % (MANUAL) 1 % (0-6); LYMPHOCYTES % (MANUAL) 25 % (13-45); MONOCYTES % (MANUAL) 8 % (3-13); SEGMENTED NEUTROPHILS % (MAN) 59 % (42-78); TOTAL CELLS COUNTED 100
[2019-03-22 14:56] LABS: OVALOCYTES SLIGHT; PLATELET COMMENT ADEQUATE; POIKILOCYTOSIS SLIGHT; TOXIC VACUOLATION PRESENT
--- NOTE | 2019-03-22 16:14 | ER Document Report ---
ED GI/ - General Chief Complaint: Nausea/Vomiting Stated Complaint: POSSIBLE DEHYDRATION Time Seen by Provider: 03/22/19 13:34 Primary Care Provider: MATHEUS RUBI MD [ACTIVE STAFF] - Follow up as needed Mode of Arrival: Ambulatory Information source: Patient Notes: 78-year-old female patient presenting to the emergency department chief complaint of vomiting. Patient reports vomiting has been ongoing for approximately 4 days. Patient reports she has not had any diarrhea, states she has not had a bowel movement in the last 2 to 3 days. Denies any blood in her vomit, denies any foul smell or taste of the vomit. She does report having abdominal surgery for colon cancer approximately 5 years ago. She also has memory issues otherwise healthy. She denies any abdominal pain just reports severe nausea. She denies fevers but reports some chills. TRAVEL OUTSIDE OF THE [place] IN LAST 30 DAYS: No - Related Data Allergies/Adverse Reactions: nitrofurantoin [From Macrobid] Allergy (Intermediate, Verified 03/22/19 13:25) Nausea nitrofurantoin macrocrystalline [From Macrobid] Allergy (Intermediate, Verified 03/22/19 13:25) Nausea Past Medical History - General Information source: Patient - Social History Smoking Status: Never Smoker Chew tobacco use (# tins/day): No Frequency of alcohol use: None Drug Abuse: None Family History: None Patient has suicidal ideation: No Patient has homicidal ideation: No - Past Medical History Cardiac Medical History: Denies: Hx Atrial Fibrillation, Hx Congestive Heart Failure, Hx Coronary Artery Disease, Hx Heart Attack, Hx Hypercholesterolemia, Hx Hypertension, Hx Peripheral Vascular Disease, Hx Heart Murmur Pulmonary Medical History: Denies: Hx Asthma, Hx Bronchitis, Hx COPD, Hx Pneumonia Neurological Medical History: Reports: Hx Seizures - 35-40 years ago, unknown cause. Denies: Hx Cerebrovascular Accident, Hx Parkinson's Disease Renal/ Medical History: Denies: Hx Peritoneal Dialysis Malignancy Medical History: Denies: Hx Leukemia GI Medical History: Reports: Hx Gastroesophageal Reflux Disease - barretts esophagus. Denies: Hx Crohn's Disease, Hx Hepatitis, Hx Hiatal Hernia, Hx Irritable Bowel, Hx Liver Failure, Hx Pancreatitis, Hx Ulcer Musculoskeletal Medical History: Reports Hx Arthritis - neck, lower back, ankles, Denies Hx Fibromyalgia, Denies Hx Multiple Sclerosis, Denies Hx Muscular Dystrophy Psychiatric Medical History: Reports: Hx Depression Denies: Hx Bipolar Disorder, Hx Dementia, Hx Post Traumatic Stress Disorder, Hx Schizophrenia Traumatic Medical History: Denies: Hx Fractures Infectious Medical History: Denies: Hx Hepatitis, Hx HIV Past Surgical History: Reports: Hx Appendectomy, Hx Bowel Surgery - colon surgery , Hx Hysterectomy, Hx Tonsillectomy. Denies: Hx Section, Hx Cholecystectomy, Hx Colostomy, Hx Coronary Artery Bypass Graft, Hx Gastric Bypass Surgery, Hx Herniorrhaphy, Hx Mastectomy, Hx Open Heart Surgery, Hx Pacemaker, Hx Tubal Ligation - Immunizations Hx Diphtheria, Pertussis, Tetanus Vaccination: Yes Hx Pneumococcal Vaccination: 04/18/11 Review of Systems - Review of Systems Constitutional: No symptoms reported EENT: No symptoms reported Cardiovascular: No symptoms reported Respiratory: No symptoms reported Gastrointestinal: Nausea, Vomiting. denies: Abdomen distended, Abdominal pain, Blood streaked bowels, Blood in vomit Genitourinary: No symptoms reported Female Genitourinary: No symptoms reported Musculoskeletal: No symptoms reported Skin: No symptoms reported Hematologic/Lymphatic: No symptoms reported Neurological/Psychological: No symptoms reported Physical Exam - Vital signs Vitals: Temp Pulse Resp BP 97.6 F 69 20 190/101 H 03/22/19 13:25 03/22/19 13:25 03/22/19 13:25 03/22/19 13:25 - Notes Notes: PHYSICAL EXAMINATION: GENERAL: Well-appearing, well-nourished and in no acute distress. HEAD: Atraumatic, normocephalic. EYES: Pupils equal round and reactive to light, extraocular movements intact, conjunctiva are normal. ENT: Nares patent, oropharynx clear without exudates. Moist mucous membranes. NECK: Normal range of motion, supple without lymphadenopathy LUNGS: Breath sounds clear to auscultation bilaterally and equal. No wheezes rales or rhonchi. HEART: Regular rate and rhythm without murmurs ABDOMEN: Soft, nontender, nondistended abdomen. No guarding, no rebound. No ma sses appreciated. Female : No CVA tenderness. Musculoskeletal: Normal range of motion, no pitting or edema. No cyanosis. NEUROLOGICAL: Cranial nerves grossly intact. Normal speech, normal gait. Normal sensory, motor exams PSYCH: Normal mood, normal affect. SKIN: Warm, Dry, normal turgor, no rashes or lesions noted. Course - Re-evaluation Re-evalutation: Laboratory 03/22/19 03/22/19 03/22/19 13:40 14:12 14:12 WBC 3.0 L RBC 4.12 Hgb 12.6 Hct 36.8 MCV 89 MCH 30.5 MCHC 34.2 RDW 13.9 Plt Count 217 Lymph % (Auto) Not Reportable Day % (Auto) Not Reportable Eos % (Auto) Not Reportable Baso % (Auto) Not Reportable Absolute Neuts (auto) Not Reportable Absolute Lymphs (auto) Not Reportable Absolute Monos (auto) Not Reportable Absolute Eos (auto) Not Reportable Absolute Basos (auto) Not Reportable Total Counted 100 Seg Neutrophils % Not Reportable Seg Neuts % (Manual) 59 Lymphocytes % (Manual) 25 Atypical Lymphs % 6 Monocytes % (Manual) 8 Eosinophils % (Manual) 1 Basophils % (Manual) 1 Abs Neuts (Manual) 1.8 Abs Lymphs (Manual) 0.9 Abs Monocytes (Manual) 0.2 Absolute Eos (Manual) 0.0 Abs Basophils (Manual) 0.0 Toxic Vacuolation PRESENT Platelet Comment ADEQUATE Poikilocytosis SLIGHT Ovalocytes SLIGHT Sodium Cancelled Potassium Cancelled Chloride Cancelled Carbon Dioxide Cancelled Anion Gap Cancelled BUN Cancelled Creatinine Cancelled Est GFR ( Amer) Cancelled Est GFR (Non-Af Amer) Cancelled Est GFR (MDRD) Non-Af Cancelled Glucose Cancelled Calcium Cancelled Total Bilirubin Cancelled Direct Bilirubin Cancelled Neonat Total Bilirubin Cancelled Neonat Direct Bilirubin Cancelled Neonat Indirect Bili Cancelled AST Cancelled ALT Cancelled Alkaline Phosphatase Cancelled Total Protein Cancelled Albumin Cancelled Lipase Cancelled EGFR Cancelled Urine Color YELLOW Urine Appearance SLIGHTLY-CLOUDY Urine pH 6.0 Ur Specific [place] 1.014 Urine Protein NEGATIVE Urine Glucose (UA) NEGATIVE Urine Ketones NEGATIVE Urine Blood NEGATIVE Urine Nitrite NEGATIVE Urine Bilirubin NEGATIVE Urine Urobilinogen NEGATIVE Ur Leukocyte Esterase TRACE H Urine WBC (Auto) 7 Urine RBC (Auto) 4 Urine Bacteria (Auto) TRACE Squamous Epi Cells Auto 20 Urine Mucus (Auto) OCC Urine Ascorbic Acid 20 H 03/22/19 15:55 WBC RBC Hgb Hct MCV MCH MCHC RDW Plt Count Lymph % (Auto) Day % (Auto) Eos % (Auto) Baso % (Auto) Absolute Neuts (auto) Absolute Lymphs (auto) Absolute Monos (auto) Absolute Eos (auto) Absolute Basos (auto) Total Counted Seg Neutrophils % Seg Neuts % (Manual) Lymphocytes % (Manual) Atypical Lymphs % Monocytes % (Manual) Eosinophils % (Manual) Basophils % (Manual) Abs Neuts (Manual) Abs Lymphs (Manual) Abs Monocytes (Manual) Absolute Eos (Manual) Abs Basophils (Manual) Toxic Vacuolation Platelet Comment Poikilocytosis Ovalocytes Sodium 143.1 Potassium 3.6 Chloride 111 H Carbon Dioxide 25 Anion Gap 7 BUN 14 Creatinine 0.55 Est GFR ( Amer) > 60 Est GFR (Non-Af Amer) Est GFR (MDRD) Non-Af > 60 Glucose 104 Calcium 8.5 Total Bilirubin 0.6 Direct Bilirubin 0.2 Neonat Total Bilirubin Not Reportable Neonat Direct Bilirubin Not Reportable Neonat Indirect Bili Not Reportable AST 23 ALT 13 Alkaline Phosphatase 62 Total Protein 6.3 Albumin 3.8 Lipase 157.6 EGFR Urine Color Urine Appearance Urine pH Ur Specific [place] Urine Protein Urine Glucose (UA) Urine Ketones Urine Blood Urine Nitrite Urine Bilirubin Urine Urobilinogen Ur Leukocyte Esterase Urine WBC (Auto) Urine RBC (Auto) Urine Bacteria (Auto) Squamous Epi Cells Auto Urine Mucus (Auto) Urine Ascorbic Acid Abdomen/Pelvis CT 03/22/19 13:37 IMPRESSION: 1. Right lower lobe pneumonia. 2. No acute finding in the abdomen or pelvis. Right lower lobe pneumonia noted on abdomen pelvis CT. No acute findings in the abdomen. Labs otherwise unremarkable. Patient has had no vomiting in the emergency department. She tolerated an oral challenge. She will be given a dose of p.o. Levaquin and discharged home. Close follow-up with PCP. Patient verbalizes understanding and agreement with plan. - Vital Signs Vital signs: Temp Pulse Resp BP Pulse Ox 98.2 F 66 17 131/62 H 98 03/22/19 19:22 03/22/19 19:22 03/22/19 19:22 03/22/19 19:22 03/22/19 19:22 - Laboratory Result Diagrams: 03/22/19 14:12 03/22/19 15:55 Laboratory results interpreted by me: 03/22/19 03/22/19 03/22/19 13:40 14:12 15:55 WBC 3.0 L Chloride 111 H Ur Leukocyte Esterase TRACE H Urine Ascorbic Acid 20 H Discharge - Discharge Clinical Impression: Pneumonia Qualifiers: Pneumonia type: due to unspecified organism Laterality: right Lung location: lower lobe of lung Qualified Code(s): J18.9 - Pneumonia, unspecified organism Vomiting Qualifiers: Vomiting type: unspecified Vomiting Intractability: unspecified Nausea presence: with nausea Qualified Code(s): R11.2 - Nausea with vomiting, unspecified Condition: Stable Disposition: HOME, SELF-CARE Additional Instructions: You have been diagnosed with a pneumonia. It is very important that you take all of your antibiotics until they are gone even if you are feeling better. Please return to the emergency department immediately if you began having w orsening shortness of breath, become confused, have worsening pain, pass out, have persistent vomiting that prevents you from being able to drink fluids for more than 12 hours, or have any other symptoms that are worrisome to you. Please follow-up with your primary care doctor in the next 1-2 days. The imaging today shows that you have a pneumonia of the right lower lobe. Please take antibiotics as prescribed, you were given a first dose here in the emergency department as you do not need to take your next dose until tomorrow. You also have had nausea vomiting likely secondary to some type of gastrointestinal upset. Please use the nausea medication as prescribed. Return to the emergency department if you develop any of the above warning signs or you are unable to hold down your medication. Follow-up with primary care, call them and let them know we diagnosed you with pneumonia so they can set up a follow-up appointment for you Prescriptions: Levofloxacin [Levaquin 750 mg Tablet] 750 mg PO DAILY #6 tablet Ondansetron [Zofran Odt 4 mg Tablet] 1 - 2 tab PO Q4H PRN #15 tab.rapdis PRN Reason: For Nausea/Vomiting Referrals: MATHEUS RUBI MD [ACTIVE STAFF] - Follow up as needed
[2019-03-22 16:47] LABS: ALBUMIN 3.8 g/dL (3.5-5.0); ALKALINE PHOSPHATASE 62 U/L (38-126); ANION GAP 7 (5-19); ASPARTATE AMINO TRANSFERASE 23 U/L (14-36); BILIRUBIN,DIRECT 0.2 mg/dL (0.0-0.4); BILIRUBIN,TOTAL 0.6 mg/dL (0.2-1.3); BLOOD UREA NITROGEN 14 mg/dL (7-20); CALCIUM 8.5 mg/dL (8.4-10.2); CARBON DIOXIDE 25 mmol/L (22-30); CHLORIDE 111 mmol/L (98-107); GLUCOSE 104 mg/dL (75-110); POTASSIUM 3.6 mmol/L (3.6-5.0); TOTAL PROTEIN 6.3 g/dL (6.3-8.2)
--- NOTE | 2019-03-22 17:45 | RADIOLOGY REPORT (SQ) ---
EXAM DESCRIPTION: CT ABD/PELVIS WITH IV ONLY COMPLETED DATE/TIME: 03/22/2019 5:27 pm REASON FOR STUDY: vomiting COMPARISON: None. TECHNIQUE: CT scan of the abdomen and pelvis performed using helical scanning technique with dynamic intravenous contrast injection. No oral contrast. Images reviewed with lung, soft tissue, and bone windows. Reconstructed coronal and sagittal MPR images reviewed. Delayed images for evaluation of the urinary system also acquired. All images stored on PACS. All CT scanners at this facility use dose modulation, iterative reconstruction, and/or weight based d osing when appropriate to reduce radiation dose to as low as reasonably achievable (ALARA). [facility]: Dose Right [facility]: CareDose [facility]: Dose Right [facility]: Teradose 4D [facility]: Vastari CONTRAST TYPE AND DOSE: contrast/concentration: Isovue 350.00 mg/ml; Total Contrast Delivered: 61.0 ml; Total Saline Delivered: 65.0 ml RENAL FUNCTION: BUN 14 creatinine 0.5 RADIATION DOSE: CT Rad equipment meets quality standard of care and radiation dose reduction techniq ues were employed. CTDIvol: 4.8 - 5.1 mGy. DLP: 512 mGy-cm.. LIMITATIONS: None. FINDINGS: LOWER CHEST: There is an area of patchy opacification in the right lower lobe anteriorly. LIVER: Normal size. No masses. No dilated ducts. SPLEEN: Normal size. No focal lesions. PANCREAS: No masses. No significant calcifications. No adjacent inflammation or peripancreatic fluid collections. Pancreatic duct not dilated. GALLBLADDER: No identified stones by CT criteria. No inflammatory changes to suggest cholecystitis. ADRENAL GLANDS: No significant masses or asymmetry. RIGHT KIDNEY AND URETER: No solid masses. No significant calcifications. No hydronephrosis or hyd roureter. LEFT KIDNEY AND URETER: No solid masses. No significant calcifications. No hydronephrosis or hydr oureter. AORTA AND VESSELS: No aneurysm. No dissection. Renal arteries, SMA, celiac without stenosis. RETROPERITONEUM: No retroperitoneal adenopathy, hemorrhage or masses. BOWEL AND PERITONEAL CAVITY: No masses or inflammatory changes. No free fluid or peritoneal masses. APPENDIX: Surgically absent. PELVIS: No mass. No free fluid. Normal bladder. ABDOMINAL WALL: No masses. No hernias. BONES: No significant or acute findings. OTHER: No other significant finding. IMPRESSION: 1. Right lower lobe pneumonia. 2. No acute finding in the abdomen or pelvis. TECHNICAL DOCUMENTATION: JOB ID: [id number] Quality ID # [id number]: Final reports with documentation of one or more dose reduction techniques (e.g., Au tomated exposure control, adjustment of the mA and/or kV according to patient size, use of iterative reconstruction technique) 2010 [employer]- All Rights Reserved Reading location - IP/workstation name: [email or web address]
[2019-03-22] MEDS ORDERED: ONDANSETRON ODT 4 MG TAB (6 TAB/ER DISP) PO PRN (18:57)
[2019-03-22] MEDS ORDERED: LEVOFLOXACIN 750 MG TABLET PO ONE (18:57)
[2019-03-22 19:26] VITALS: BP 131/62
== END 2019-03-22 19:20 | disposition home or self-care (01) ==
LOC: ER 13:03
DX: R11.2 Nausea with vomiting, unspecified (principal); J18.9 Pneumonia, unspecified organism; Z85.038 Personal history of other malignant neoplasm of large intestine; R68.83 Chills (without fever); Z87.19 Personal history of other diseases of the digestive system; Z90.49 Acquired absence of other specified parts of digestive tract; Z88.1 Allergy status to other antibiotic agents
CPT/HCPCS: 96376; 99284; 96361; 96374; 36415; 83690; 85025; 80053; 81001; 74177; J2405; J7030; A9270 ×2

== ENCOUNTER → 2019-11-01 | Outpatient (CLI) | payer MEDICARE, OTHER ==
--- NOTE | 2019-11-02 09:12 | RADIOLOGY REPORT (SQ) ---
EXAM DESCRIPTION: CT SINUSES FOR ENT IMAGES COMPLETED DATE/TIME: 11/01/2019 2:00 pm REASON FOR STUDY: ACUTE RECURRENT SINUSITIS (J01.91) J01.91 ACUTE RECURRENT SINUSITIS, UNSPECIFIED COMPARISON: None. TECHNIQUE: Noncontrast scanning through the paranasal sinuses using bone algorithm. Reconstructed MPR images reviewed. All images stored on PACS. All CT scanners at this facility use dose modulation, iterative reconstruction, and/or weight based d osing when appropriate to reduce radiation dose to as low as reasonably achievable (ALARA). [facility]: Dose Right [facility]: CareDose [facility]: Dose Right [facility]: Teradose 4D [facility]: [employer] RADIATION DOSE: 48 mGy LIMITATIONS: None. FINDINGS: Right sinuses and drainage pathways: Post-surgical changes: None. Frontal sinus: Normal. Frontoethmoidal Recess: Normal. Anterior Ethmoid Sinuses: Normal. Posterior Ethmoid Sinuses: Normal. Sphenoid Sinus: Normal. Sphenoethmoidal Recess: Normal. Maxillary Sinus: Normal. Ostiomeatal Complex: Right uncinate process extensive lamina papyracea on coronal image 74 Left Sinuses and Drainage Pathways: Post-Surgical Changes: None. Frontal Sinus: Normal. Frontoethmoidal Recess: Normal. Anterior Ethmoid Sinuses: Normal. Posterior Ethmoid Sinuses: Normal. Sphenoid Sinus: Normal. Sphenoethmoidal Recess: Normal. Maxillary Sinus: Normal. Ostiomeatal Complex: Normal. Right Olfactory Fossa: No polyps. Left Olfactory Fossa: No polyps. Middle Turbinate Tiffani Bull[place]: No. Paradoxical Middle Turbinate: No. Atelectatic Uncinated Process: On the right, uncinate process extends to the lamina perforation, cor onal image 74 Frontal Ochoa Cell Type I: No. Frontal Ochoa Cell Type II: No. Interfrontal Sinus Septal Cell: None. Supra-Orbital Ethmoid: None. Frontal Bullar Cell: None. Suprabullar Bullar Cell: None. Sphenoethmoidal ([place]) Cell: None. Pneumatization of the Anterior Clinoid Processes: No Hypoplastic Maxillary Sinus: None. Osteoneogenesis: None. Bone Dehiscence:None. Nasal Cavity: Normal. Nasal Septum: Midline Anatomic Variants: Right V[place] Canal: Normal. Left V[place] Canal: Normal. IMPRESSION: NO EVIDENCE OF ACUTE OR CHRONIC SINUSITIS. TECHNICAL DOCUMENTATION: JOB ID: [id number] Quality ID # [id number]: Final reports with documentation of one or more dose reduction techniques (e.g., Au tomated exposure control, adjustment of the mA and/or kV according to patient size, use of iterative reconstruction technique) 2010 [employer]- All Rights Reserved Reading location - IP/workstation name: [email or web address]
== END ==
LOC: RAD 13:43
PROVIDERS: ATTEND Otolaryngology
DX: J01.91 Acute recurrent sinusitis, unspecified (principal)
CPT/HCPCS: 70486